=== PATIENT | female | born 1930 | race African-American/Black ===

== ENCOUNTER 2018-03-01 17:08 | Observation (INO) | payer OTHER ==
--- NOTE | 2018-03-01 18:25 | PDOC ---
Attending Attestation - Resident Resident Name: Kevin Medina - ED Attending Attestation I have performed the following: I have examined & evaluated the patient, The case was reviewed & discussed with the resident, I agree w/resident's findings & plan, Exceptions are as noted - HPI HPI: 03/01/18 19:03 The patient is an 88 year old female with a significant past medical history of breast ca, angina pectoris,CAD, CVA s/p L sided weakness, CHF, diabetes, HTN, HLD, depressive disorder, tremors, and dementia who presents to the emergency department for evaluation of right sided weakness at 4pm. The patient reports the right sided weakness has since resolved .The patient reports associated symptoms of generalized weakness and nausea. She states she has been in and out of the hospital for months for nausea without vomiting. As per transfer notes, the patient was unsteady on romberg testing and had a right sided pronator drift which prompted the MA staff to send her to the emergency department to rule out TIA. Pt is a poor historian and admits to having some "memory problems." The patient denies chest pain, shortness of breath, headache, and dizziness. Denies fevers, chills, vomiting, diarrhea, and constipation. Denies dysuria, frequency, urgency, and hematuria. Allergies: NKA Past surgical history: Mastectomy Social history: No reported cigarette, alcohol, or drug use. - Physicial Exam PE: 03/01/18 19:04 GENERAL: Awake, alert, oriented to name only, in no acute distress HEAD: No signs of trauma EYES: PERRLA, EOMI, sclera anicteric, conjunctiva clear ENT: Auricles normal inspection, hearing grossly normal, nares patent, oropharynx clear without exudates. Moist mucosa NECK: Normal ROM, supple, no lymphadenopathy, JVD, or masses LUNGS: Breath sounds equal, clear to auscultation bilaterally. No wheezes, and no crackles HEART: Regular rate and rhythm, normal S1 and S2, no murmurs, rubs or gallops ABDOMEN: Soft, nontender, normoactive bowel sounds. No guarding, no rebound. No masses EXTREMITIES: Normal range of motion, no edema. No clubbing or cyanosis. No cords , erythema, or tenderness BACK: No midline spinal tenderness in cervical/thoracic/lumbar region NEUROLOGICAL: +word finding difficulty, cranial nerves intact, negative pronator drift, 5/5 strength in all 4 extremities, normal sensation to light touch in all 4 extremities, normal cerebellar exam, slightly ataxic gait SKIN: Warm, Dry, normal turgor, no rashes or lesions noted. - Medical Decision Making 03/01/18 18:38 88yo F with MMP including CVA with residual L sided weakness presents with transient R sided weakness at 4pm, that has since resolved. BP slightly low, other vitals unremarkable. DDx including TIA vs CVA vs toxic-metabolic abnormality. -labs -cth -ua -neuro c/s -dispo 03/01/18 20:23 CTH negative for acute CVA. Pt admitted for stroke work up Case discussed in detail with admitting physician Dr. Phelps including history, physical exam and ancillary studies. Admitting physician has assumed care for the patient, will follow all pending diagnostics and will complete the evaluation and treatment.
--- NOTE | 2018-03-01 18:44 | PDOC ---
History of Present Illness - General Chief Complaint: CVA/TIA Stated Complaint: WEAKNESS Time Seen by Provider: 03/01/18 17:33 - History of Present Illness Initial Comments: 03/01/18 19:32 The patient is an 88 year old female with a history of HTN, HLD, DM, CVA with residual left sided deficits who presents from [facility] for evaluation of right sided weakness. Per the AK, the patient began experiencing new right sided weakness and mild pronator drift with associated positive rhomburg at 4pm today and was transferred to the ED for further evaluation. The patient reports no symptoms here in the ED and notes only generalized weakness. The patient otherwise denies fevers, chills, SOB, chest pain, vomiting, abdominal pain, or changes with urination or bowel movements. tPA Exclusion checklist 3-4.5h - Time Elapsed Date last known well: 03/01/18 Time last known well: 16:00 Elaspsed time: Day(s) and 21 Hour(s) and 1 Minutes - Thrombolytic Therapy Candidate Is patient eligible for thrombolytic therapy: No - Relative Exclusion Criteria 3-4.5 hr Rapid improvement: Yes Stroke severity too mild: Yes - Add'l Relative Exclusion 3-4.5 hr Age > 80: Yes Taking an oral anticoagulant regardless of INR: Yes - Ineligibility reason(s) Reasons No tPA given: See reason(s) noted above NIH Stroke Scale - Last Known Well Date/Time & Onset Date Last Known Well: 03/01/18 Time Last Known Well: 16:00 - Initial Evaluation Level of consciousness: Alert Ask patient the month and their age: Answers both correctly Ask patient to open & close eyes; make fist and let go: Obeys both correctly Best gaze (horizontal eye movement): Normal Visual field testing: No visual field loss Facial paresis (Show teeth/raise eyebrows/close eyes tight): Normal symmetrical movement Motor Function: Left Arm: Normal Motor Function: Right Arm: Normal (extends arm 90 (or 45) degrees for 10 seconds without drift Motor Function: Left Leg: Normal (extends leg 30 degrees for 5 seconds without drift) Motor Function: Right Leg: Normal (extends leg 30 degrees for 5 seconds without drift) Limb Ataxia: No ataxia Sensory(Use pinprick test arms,legs,trunk,face/side to side): Normal Best language (Describe picture, name items, read sentences): No Aphasia Dysarthria (read several words): Normal articulation Extinction and Inattention: No abnormality - Total Score NIH Stroke Scale Score: 0 Past History - Past Medical History Allergies/Adverse Reactions: Allergies Allergy/AdvReac Type Severity Reaction Status Date / Time No Known Allergies Allergy Verified 03/01/18 17:21 Home Medications: Ambulatory Orders Acetaminophen [Tylenol] 650 mg PO TID PRN 03/01/18 Apixaban [Eliquis] 2.5 mg PO BID 03/01/18 Aspirin 81 mg PO DAILY 03/01/18 Atorvastatin Calcium 80 mg PO HS 03/01/18 Budesonide [Pulmicort 0.5 mg Nebulizer -] 1 neb NEB BID 03/01/18 Carvedilol [Coreg -] 6.25 mg PO BID 03/01/18 Docusate Sodium [Colace] 100 mg PO BID 03/01/18 Duloxetine HCl [Cymbalta -] 30 mg PO DAILY 03/01/18 Lisinopril [Zestril] 10 mg PO DAILY 03/01/18 Metformin HCl [Glucophage] 500 mg PO BID 03/01/18 Mirtazapine [Remeron -] 15 mg PO HS 03/01/18 Nitroglycerin 0.4 mg SL PRN PRN 03/01/18 Polyethylene Glycol 3350 [Clearlax] 17 gm PO DAILY 03/01/18 Cancer: Yes (malignant neoplasmt breast) Cardiac Disorders: Yes (angina pectoris, Artherosclerotic coronary artery disease) CVA: Yes (left sided hemiplagia right middle cerebral artery) COPD: No Diabetes: Yes HTN: Yes Hypercholesterolemia: Yes Psychiatric Problems: Yes (depresive disorder) Other medical history: tremors,cognitive, muscle weakness, - Suicide/Smoking/Psychosocial Hx Smoking History: Unknown if ever smoked Have you smoked in the past 12 months: No Information on smoking cessation initiated: No Hx Alcohol Use: No Drug/Substance Use Hx: No Substance Use Type: None Review of Systems - Review of Systems Comments:: 03/01/18 19:34 Constitutional: No fevers, chills, fatigue, malaise HEENT: No Rhinorrhea, nasal congestion, visual changes Cardiovascular: No chest pain, syncope, palpitations, lightheadedness Respiratory: No Cough, SOB, Hemoptysis, Gastrointestinal: Nausea. No Abdominal pain, Vomiting, Constipation, Diarrhea, Melena Genitourinary: No Dysuria, Frequency, Urgency, Hesitancy, Hematuria, Flank pain Musculoskeletal: No Myalgia, arthralgia Skin: No rashes, itching, bruising, pallor Neurologic: Weakness. No Headache, Dizziness, Numbness, or Tingling Psychiatric: No Hallucinations. No SI or HI *Physical Exam - Vital Signs Last Vital Signs Temp Pulse Resp BP Pulse Ox 98.8 F 94 H 18 98/68 100 03/01/18 17:22 03/01/18 17:22 03/01/18 17:22 03/01/18 17:22 03/01/18 17:22 - Physical Exam Comments: 03/01/18 19:35 General Appearance: Nourished. No Apparent Distress HEENT: EOMI, AVELINA. No Pharyngeal Erythema, Tonsillar Exudate, Tonsillar Erythema Neck: No Cervical Lymphadenopathy Respiratory/Chest: Lungs Clear, Normal Breath Sounds. No Crackles, Rales, Rhonchi, Wheezing Cardiovascular: Regular Rhythm, Regular Rate. No Murmur, Gallops, Rubs Gastrointestinal/Abdominal: Normal Bowel Sounds, Soft. 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 Normal Finger to Nose and Heel to Jones. No pronator drift. ED Treatment Course - LABORATORY CBC & Chemistry Diagram: 03/02/18 06:00 03/02/18 06:00 - RADIOLOGY Radiology Studies Ordered: Category Date Time Status HEAD CT (STROKE) [CT] Stat CT Scan 03/01/18 17:46 Taken Medical Decision Making - Medical Decision Making 03/01/18 19:36 The patient is an 88 year old female with a history of HTN, HLD, DM, CVA with residual left sided deficits who presents from [facility] for evaluation of right sided weakness. Differential includes but is not limited to: TIA, CVA, Infectious, Metabolic derangement. The patient does not qualify for Tpa given her quick resolution of symptoms and that she is asymptomatic here in the ED. We obtain a stat head CT which demonstrated chronic bilateral infarcts as discussed with our radiologist. We discussed the case with Dr. Mckinnon who notes that the patient is on maximal medical therapy at this time and agrees that she should be admitted for MRI evaluation. We will send a cbc, cmp, troponin, lipid profile, ekg to evaluate further in the meantime. We will continue to monitor and reassess while here in the ED. 03/01/18 22:01 CBC, cmp, troponin are unremarkable. We discussed the case with the hospitalist team who accepted the patient for admission. We discussed the plan with the patient's family who voiced understanding and are agreeable with the plan. *DC/Admit/Observation/Transfer Diagnosis at time of Disposition: TIA (transient ischemic attack) Qualifiers: Transient cerebral ischemia type: unspecified Qualified Code(s): G45.9 - Transient cerebral ischemic attack, unspecified - Discharge Dispostion Condition at time of disposition: Stable Decision to Admit order: Yes - Referrals - Patient Instructions - Post Discharge Activity
[2018-03-01 18:56] LABS: BASO % 0.4 % (0-2.0); EOS % 1.2 % (0-4.5); HEMATOCRIT 31.5 % (32.4-45.2); HEMOGLOBIN 10.5 GM/dL (10.7-15.3); MCH 30.8 pg (25.7-33.7); MCHC 33.2 g/dl (32.0-36.0); MEAN CELL VOLUME 92.8 fl (80-96); MEAN PLT VOLUME 8.2 fl (7.5-11.1); MONO % 13.6 % (3.8-10.2); NEUT % 63.8 % (42.8-82.8); PLATELET COUNT 208 K/MM3 (134-434); RDW 14.3 % (11.6-15.6); WHITE BLOOD COUNT 5.9 K/mm3 (4.0-10.0)
[2018-03-01 19:16] LABS: INR 1.18 (0.82-1.09); PROTHROMBIN TIME (PATIENT) 13.3 SEC (9.7-13.0)
[2018-03-01 19:29] LABS: ALBUMIN 3.5 g/dl (3.4-5.0); ANION GAP 7 (8-16); BILIRUBIN,TOTAL 0.4 mg/dL (0.2-1.0); BLOOD UREA NITROGEN 45 mg/dL (7-18); CALCIUM 8.6 mg/dL (8.5-10.1); CHLORIDE 111 mmol/L (98-107); CHOLESTEROL 132 mg/dL (50-200); CO2 24 mmol/L (21-32); CREATININE 2.1 mg/dL (0.55-1.02); GLUCOSE,RANDOM 100 mg/dL (74-106); POTASSIUM 4.9 mmol/L (3.5-5.1); SGOT/AST 130 U/L (15-37); SGPT/ALT 101 U/L (12-78); SODIUM 142 mmol/L (136-145); TOT PROT 7.3 g/dl (6.4-8.2); TRIGLYCERIDES 94 mg/dL (35-160)
[2018-03-01 19:30] LABS: ALK PHOS 156 U/L (45-117); HDL CHOLESTEROL 62 mg/dL (40-60)
[2018-03-01 22:39] VITALS: BMI 22.6
--- NOTE | 2018-03-02 05:54 | HP ---
CHIEF COMPLAINT: R-sided weakness PCP: Dr. Pérez Lu HISTORY OF PRESENT ILLNESS: This is a 88 y/o woman PMHx HTN, HLD, CHF, Stents, s/p CABG, CVA (L- sided residual), Asthma, Depression. Who presents to the ED from [facility] for R- sided weakness. Patient reports having generalized weakness worse on her right side. Patient denies numbness or tingling, facial droop. Patient denies fever, chills, cough, SOB, dizziness, FAN, CP, AP, N/V/D. ER course was notable for: (1) CT Brain- neg ICH, mass effects or hydrocephalus, chronic bilateral MCA territory infarcts. mild to moderate microvascular ischemic changes (2) Chest Xray- no evidence if pulm congestion, effusion or infiltrates (3) Transaminitis- 3xNL Recent Travel: None PAST MEDICAL HISTORY: See HPI PAST SURGICAL HISTORY: See HPI Social History: Smoking: Unknown Alcohol: None Drugs: None Family History: Non- Contributory Allergies No Known Allergies Allergy (Verified 03/01/18 17:21) HOME MEDICATIONS: Home Medications Medication Instructions Recorded Acetaminophen [Tylenol] 650 mg PO TID PRN 03/01/18 Apixaban [Eliquis] 2.5 mg PO BID 03/01/18 Aspirin 81 mg PO DAILY 03/01/18 Atorvastatin Calcium 80 mg PO HS 03/01/18 Budesonide [Pulmicort 0.5 mg 1 neb NEB BID 03/01/18 Nebulizer -] Carvedilol [Coreg -] 6.25 mg PO BID 03/01/18 Docusate Sodium [Colace] 100 mg PO BID 03/01/18 Duloxetine HCl [Cymbalta -] 30 mg PO DAILY 03/01/18 Lisinopril [Zestril] 10 mg PO DAILY 03/01/18 Metformin HCl [Glucophage] 500 mg PO BID 03/01/18 Mirtazapine [Remeron -] 15 mg PO HS 03/01/18 Nitroglycerin 0.4 mg SL PRN PRN 03/01/18 Polyethylene Glycol 3350 [Clearlax] 17 gm PO DAILY 03/01/18 REVIEW OF SYSTEMS CONSTITUTIONAL: generalized weakness Absent: fever, chills, diaphoresis, malaise, loss of appetite, weight change HEENT: Absent: rhinorrhea, nasal congestion, throat pain, throat swelling, difficulty swallowing, mouth swelling, ear pain, eye pain, visual changes CARDIOVASCULAR: Absent: chest pain, syncope, palpitations, irregular heart rate, lightheadedness , peripheral edema RESPIRATORY: Absent: cough, shortness of breath, dyspnea with exertion, orthopnea, wheezing, stridor, hemoptysis GASTROINTESTINAL: Absent: abdominal pain, abdominal distension, nausea, vomiting, diarrhea, constipation, melena, hematochezia GENITOURINARY: Absent: dysuria, frequency, urgency, hesitancy, hematuria, flank pain, genital pain MUSCULOSKELETAL: Absent: myalgia, arthralgia, joint swelling, back pain, neck pain SKIN: Absent: rash, itching, pallor HEMATOLOGIC/IMMUNOLOGIC: Absent: easy bleeding, easy bruising, lymphadenopathy, frequent infections ENDOCRINE: Absent: unexplained weight gain, unexplained weight loss, heat intolerance, cold intolerance NEUROLOGIC: focal weakness Absent: headache, paresthesias, dizziness, unsteady gait, seizure, mental status changes, bladder or bowel incontinence PSYCHIATRIC: Absent: anxiety, depression, suicidal or homicidal ideation, hallucinations. PHYSICAL EXAMINATION Vital Signs - 24 hr 03/01/18 03/01/18 03/01/18 17:22 17:35 19:45 Temperature 98.8 F Pulse Rate 94 H 87 91 H Pulse Rate [ Apical] Respiratory 18 Rate Blood Pressure 98/68 Blood Pressure [Right Arm] O2 Sat by Pulse 100 97 98 Oximetry (%) 03/01/18 03/01/18 03/01/18 20:03 21:05 22:27 Temperature 97.9 F Pulse Rate 83 Pulse Rate [ 83 Apical] Respiratory 26 H 20 Rate Blood Pressure 143/59 Blood Pressure 101/73 [Right Arm] O2 Sat by Pulse 98 98 Oximetry (%) 03/01/18 03/02/18 22:46 01:05 Temperature 98.3 F Pulse Rate 73 Pulse Rate [ Apical] Respiratory 20 Rate Blood Pressure 115/68 Blood Pressure [Right Arm] O2 Sat by Pulse 95 Oximetry (%) GENERAL: Awake, alert, and fully oriented, in no acute distress. HEAD: Normal with no signs of trauma. EYES: Pupils equal, round and reactive to light, extraocular movements intact, sclera anicteric, conjunctiva clear. No lid lag. EARS, NOSE, THROAT: Ears normal, nares patent, oropharynx clear without exudates. Moist mucous membranes. NECK: Normal range of motion, supple without lymphadenopathy, JVD, or masses. LUNGS: Breath sounds equal, clear to auscultation bilaterally. No wheezes, and no crackles. No accessory muscle use. HEART: Regular rate and rhythm, normal S1 and S2 without murmur, rub or gallop. ABDOMEN: Soft, nontender, not distended, normoactive bowel sounds, no guarding, no rebound, no masses. No hepatomegaly or splenomegaly. MUSCULOSKELETAL: Normal range of motion at all joints. No bony deformities or tenderness. No CVA tenderness. UPPER EXTREMITIES: 2+ pulses, warm, well-perfused. No cyanosis. No clubbing. No peripheral edema. LOWER EXTREMITIES: 2+ pulses, warm, well-perfused. No calf tenderness. No peripheral edema. NEUROLOGICAL: Cranial nerves II-XII intact. Normal speech. Gait not observed. PSYCHIATRIC: Cooperative. Good eye contact. Appropriate mood and affect. SKIN: Warm, dry, normal turgor, no rashes or lesions noted, normal capillary refill. Laboratory Results - last 24 hr 03/01/18 03/01/18 03/01/18 18:05 18:05 18:05 WBC 5.9 RBC 3.40 L Hgb 10.5 L Hct 31.5 L MCV 92.8 MCH 30.8 MCHC 33.2 RDW 14.3 Plt Count 208 MPV 8.2 Neutrophils % 63.8 Lymphocytes % 21.0 Monocytes % 13.6 H Eosinophils % 1.2 Basophils % 0.4 Nucleated RBC % 0 PT with INR 13.30 H INR 1.18 H Sodium 142 Potassium 4.9 Chloride 111 H Carbon Dioxide 24 Anion Gap 7 L BUN 45 H Creatinine 2.1 H Creat Clearance w eGFR 22.28 Random Glucose 100 Calcium 8.6 Total Bilirubin 0.4 AST 130 H ALT 101 H Alkaline Phosphatase 156 H Creatine Kinase 123 Troponin I < 0.02 Total Protein 7.3 Albumin 3.5 Triglycerides 94 Cholesterol 132 Total LDL Cholesterol 64 HDL Cholesterol 62 H ASSESSMENT/PLAN: This is a 88 y/o PMH: CVA (L-sided deficits), CHF, HTN, Asthma, CKD, OA. Placed in Tele Observation for TIA. Plan FEN - D51/2NS@30cc/hr - Replete lytes prn - NPO DVT ppx - OOB - SCDs Code Status: Full Code Dispo: Tele Observation Problem List - Problem (1) TIA (transient ischemic attack) Assessment/Plan: - r/o CVA - Cardiac monitoring - NIHSS 0 - CT Brain- no ICH - Appreciate Neurology consult - MRI Brain- pending - Swallow eval - RD - HgbA1c - Neurochecks - Fall precautions - CBC, BMP in am - Continue home meds Code(s): G45.9 - TRANSIENT CEREBRAL ISCHEMIC ATTACK, UNSPECIFIED Qualifiers: Transient cerebral ischemia type: unspecified Qualified Code(s): G45.9 - Transient cerebral ischemic attack, unspecified (2) Transaminitis Assessment/Plan: - Likely secondary to high dose statin vs acetaminophen - Consider decreasing Lipitor (weigh risks vs dangers 2/2 recent CVA) - Monitor BMP Code(s): R74.0 - NONSPEC ELEV OF LEVELS OF TRANSAMNS & LACTIC ACID DEHYDRGNSE (3) CAD (coronary artery disease) Assessment/Plan: - Stable - s/p CABG - Continue home meds - EKG reviewed Code(s): I25.10 - ATHSCL HEART DISEASE OF [place] CORONARY ARTERY W/O ANG PCTRS (4) HTN (hypertension) Assessment/Plan: - stable - Monitor BP - Continue Lisinopril with caution 2/2 NAOMY (Crcl 14ml/min) - Monitor renal function Code(s): I10 - ESSENTIAL (PRIMARY) HYPERTENSION (5) CKD (chronic kidney disease) Assessment/Plan: - Cr 2.1, unlnown baseline - Consider Nephrology consult - Avoid Nephrotoxic drugs - Repeat BMP in am Code(s): N18.9 - CHRONIC KIDNEY DISEASE, UNSPECIFIED (6) CHF (congestive heart failure) Assessment/Plan: - Stable - Chest Xray- no infiltrate or effusion - BNP in am - Continue home meds - Monitor vitals Code(s): I50.9 - HEART FAILURE, UNSPECIFIED (7) Asthma Assessment/Plan: -Stable - Continue Pulmicort neb - Peakflow - Monitor Spo2, vitals Code(s): J45.909 - UNSPECIFIED ASTHMA, UNCOMPLICATED (8) Breast cancer, left Assessment/Plan: - s/p Mastectomy - FU with Oncology as needed Code(s): C50.912 - MALIGNANT NEOPLASM OF UNSPECIFIED SITE OF LEFT FEMALE BREAST Visit type - Emergency Visit Emergency Visit: Yes ED Registration Date: 03/01/18 Care time: The patient presented to the Emergency Department on the above date and was hospitalized for further evaluation of their emergent condition. - New Patient This patient is new to me today: Yes Date on this admission: 03/01/18 - Critical Care Critical Care patient: No Hospitalist Screening - Colonoscopy Questionnaire Colonoscopy Questionnaire: Colonoscopy Questionnaire - Patient: 50 - 75 years old and never had a screening colonoscopy: No History of colon or rectal polyps, or CA: No History of IBD, Crohn's disease or UC: No History of abdominal radiation therapy as a child: No - Relative: 1 with colon or rectal CA, or polyps at age 60 or younger: No Colon or rectal CA diagnosed at age 45 or younger: No Multiple relatives with colon or rectal CA: No - Outcome: Screening Result: Negative Screen
[2018-03-02 06:34] LABS: BASO % 0.7 % (0-2.0); EOS % 2.4 % (0-4.5); HEMATOCRIT 28.3 % (32.4-45.2); HEMOGLOBIN 9.4 GM/dL (10.7-15.3); LYMPH % 31.6 % (8-40); MCH 30.8 pg (25.7-33.7); MCHC 33.3 g/dl (32.0-36.0); MEAN CELL VOLUME 92.6 fl (80-96); MEAN PLT VOLUME 7.9 fl (7.5-11.1); MONO % 15.5 % (3.8-10.2); NEUT % 49.8 % (42.8-82.8); PLATELET COUNT 163 K/MM3 (134-434); RBC 3.06 M/mm3 (3.60-5.2); RDW 13.8 % (11.6-15.6); WHITE BLOOD COUNT 4.9 K/mm3 (4.0-10.0)
[2018-03-02 06:58] LABS: ANION GAP 7 (8-16); BLOOD UREA NITROGEN 42 mg/dL (7-18); CALCIUM 8.4 mg/dL (8.5-10.1); CHLORIDE 114 mmol/L (98-107); CO2 24 mmol/L (21-32); CREATININE 1.8 mg/dL (0.55-1.02); GLUCOSE,RANDOM 100 mg/dL (74-106); MAGNESIUM 1.5 mg/dL (1.8-2.4); PHOSPHOROUS 4.4 mg/dL (2.5-4.9); POTASSIUM 4.6 mmol/L (3.5-5.1); SODIUM 145 mmol/L (136-145)
[2018-03-02] MEDS: DULoxetine HCL 30 MG CAPSULE.DR (FP) PO SCH (09:28)
[2018-03-02] MEDS: APIXABAN 2.5 MG TABLET PO SCH ×2 (09:28→22:00)
[2018-03-02] MEDS: DOCUSATE SODIUM 100 MG CAPSULE (FP) PO SCH ×2 (09:28→22:00)
[2018-03-02] MEDS: ASPIRIN 81 MG CHEWABLE TABLETS PO SCH (09:28)
[2018-03-02] MEDS: CARVEDILOL 6.25 MG TABLET (FP) PO SCH ×2 (09:28→22:00)
[2018-03-02] MEDS: LISINOPRIL 10 MG TABLET (FP) PO SCH (09:29)
[2018-03-02] MEDS: DEXTROSE 5%-0.45% SALINE 1,000 ML IV SCH ×2 (09:29→22:22)
[2018-03-02] MEDS ORDERED: LISINOPRIL 10 MG TABLET (FP) PO SCH (10:00)
[2018-03-02] MEDS: BUDESONIDE 0.5 MG/2 ML INH SUSP VIAL NEB SCH ×2 (10:00→21:45)
[2018-03-02] MEDS: INSULIN SLIDING SCALE (NOVOLOG) 1 VIAL SQ SCH ×3 (12:01→22:00)
--- NOTE | 2018-03-02 13:07 | CON.NEURO ---
Consult - Past Medical History ...: No - Alcohol/Substance Use Hx Alcohol Use: No - Smoking History Smoking history: Unknown if ever smoked Have you smoked in the past 12 months: No Home Medications - Allergies Allergies/Adverse Reactions: Allergies Allergy/AdvReac Type Severity Reaction Status Date / Time No Known Allergies Allergy Verified 03/01/18 17:21 - Home Medications Home Medications: Ambulatory Orders Acetaminophen [Tylenol] 650 mg PO TID PRN 03/01/18 Apixaban [Eliquis] 2.5 mg PO BID 03/01/18 Aspirin 81 mg PO DAILY 03/01/18 Atorvastatin Calcium 80 mg PO HS 03/01/18 Budesonide [Pulmicort 0.5 mg Nebulizer -] 1 neb NEB BID 03/01/18 Carvedilol [Coreg -] 6.25 mg PO BID 03/01/18 Docusate Sodium [Colace] 100 mg PO BID 03/01/18 Duloxetine HCl [Cymbalta -] 30 mg PO DAILY 03/01/18 Lisinopril [Zestril] 10 mg PO DAILY 03/01/18 Metformin HCl [Glucophage] 500 mg PO BID 03/01/18 Mirtazapine [Remeron -] 15 mg PO HS 03/01/18 Nitroglycerin 0.4 mg SL PRN PRN 03/01/18 Polyethylene Glycol 3350 [Clearlax] 17 gm PO DAILY 03/01/18 Physical Exam-Neuro Vital Signs: Vital Signs Temperature 98.7 F 03/02/18 09:00 Pulse Rate 85 03/02/18 09:00 Respiratory Rate 20 03/02/18 09:00 Blood Pressure 114/59 03/02/18 09:00 O2 Sat by Pulse Oximetry (%) 95 03/02/18 09:00 Labs: CBC, BMP 03/02/18 06:00 03/02/18 06:00 INR, PTT INR 1.18 (0.82-1.09) H 03/01/18 18:05 Assessment/Plan cc Transient right sided weakness HPI 88 year old female history of htn, hld , CABG,CHF, S/P stent WITH MILD left sided residual weaknes. She also have history of depression. She lives in [place] and came with right sided weakness. Her symptoms resolved. She is feelign much better. She is on atorvastatin and eliquis. Her ct scan of brain was normal. PMH as above ROS,SH,FH reviewed in chart NKDA HOME MEDICATIONS: Home Medications Medication Instructions Recorded Acetaminophen [Tylenol] 650 mg PO TID PRN 03/01/18 Apixaban [Eliquis] 2.5 mg PO BID 03/01/18 Aspirin 81 mg PO DAILY 03/01/18 Atorvastatin Calcium 80 mg PO HS 03/01/18 Budesonide [Pulmicort 0.5 mg 1 neb NEB BID 03/01/18 Nebulizer -] Carvedilol [Coreg -] 6.25 mg PO BID 03/01/18 Docusate Sodium [Colace] 100 mg PO BID 03/01/18 Duloxetine HCl [Cymbalta -] 30 mg PO DAILY 03/01/18 Lisinopril [Zestril] 10 mg PO DAILY 03/01/18 Metformin HCl [Glucophage] 500 mg PO BID 03/01/18 Mirtazapine [Remeron -] 15 mg PO HS 03/01/18 Nitroglycerin 0.4 mg SL PRN PRN 03/01/18 Polyethylene Glycol 3350 [Clearlax] 17 gm PO DAILY 03/01/18 Neurological Examination Alert oriented x 2, speech is normal eomi, pupils reactive , no face asymmetry except 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 She is on Eliquis ( as per patient for abnromal heart rate) Plan- waiting for speech and swallow, no need for pt as symptoms resolved - mri ofbrain and carotid ultrasound - stroke education - continue aspirin and anticoagulation - continue statin - Patient can be discharged once work up has been negative Thanking you so much Dalton Galdamez MD
--- NOTE | 2018-03-02 13:49 | PN ---
Physical Exam: SUBJECTIVE: Patient seen and examined. Patient has no complaints. OBJECTIVE: Vital Signs Period Temp Pulse Resp BP Sys/Parish Pulse Ox Last 24 Hr 97.8 F-98.8 F 73-94 18-26 98-143/59-73 95-100 GENERAL: The patient is awake, alert, in no acute distress. LUNGS: Breath sounds equal, clear to auscultation bilaterally, no wheezes, no crackles, no accessory muscle use. HEART: Regular rate and rhythm, S1, S2 without murmur, rub or gallop. ABDOMEN: Soft, nontender, nondistended, normoactive bowel sounds, no guarding, no rebound, no hepatosplenomegaly, no masses. EXTREMITIES: 2+ pulses, warm, well-perfused, no edema. NEUROLOGICAL: Speech clear. No facial weakness. Strength 4+/5 in RUE/LLE/RLE and 4/5 in LUE Laboratory Results - last 24 hr 03/01/18 03/01/18 03/01/18 18:05 18:05 18:05 WBC 5.9 RBC 3.40 L Hgb 10.5 L Hct 31.5 L MCV 92.8 MCH 30.8 MCHC 33.2 RDW 14.3 Plt Count 208 MPV 8.2 Neutrophils % 63.8 Lymphocytes % 21.0 Monocytes % 13.6 H Eosinophils % 1.2 Basophils % 0.4 Nucleated RBC % 0 PT with INR 13.30 H INR 1.18 H Sodium 142 Potassium 4.9 Chloride 111 H Carbon Dioxide 24 Anion Gap 7 L BUN 45 H Creatinine 2.1 H Creat Clearance w eGFR 22.28 POC Glucometer Random Glucose 100 Calcium 8.6 Phosphorus Magnesium Total Bilirubin 0.4 AST 130 H ALT 101 H Alkaline Phosphatase 156 H Creatine Kinase 123 Troponin I < 0.02 Total Protein 7.3 Albumin 3.5 Triglycerides 94 Cholesterol 132 Total LDL Cholesterol 64 HDL Cholesterol 62 H 03/02/18 03/02/18 03/02/18 06:00 06:00 11:55 WBC 4.9 RBC 3.06 L Hgb 9.4 L D Hct 28.3 L MCV 92.6 MCH 30.8 MCHC 33.3 RDW 13.8 Plt Count 163 D MPV 7.9 Neutrophils % 49.8 D Lymphocytes % 31.6 D Monocytes % 15.5 H Eosinophils % 2.4 D Basophils % 0.7 Nucleated RBC % 0 PT with INR INR Sodium 145 Potassium 4.6 Chloride 114 H Carbon Dioxide 24 Anion Gap 7 L BUN 42 H Creatinine 1.8 H Creat Clearance w eGFR POC Glucometer 251 Random Glucose 100 Calcium 8.4 L Phosphorus 4.4 Magnesium 1.5 L Total Bilirubin AST ALT Alkaline Phosphatase Creatine Kinase Troponin I Total Protein Albumin Triglycerides Cholesterol Total LDL Cholesterol HDL Cholesterol Active Medications Generic Name Dose Route Start Last Admin Trade Name Freq PRN Reason Stop Dose Admin Apixaban 2.5 mg 03/02/18 10:00 03/02/18 09:28 Eliquis - PO 2.5 mg BID TABATHA Administration Aspirin 81 mg 03/02/18 10:00 03/02/18 09:28 Asa - PO 81 mg DAILY TABATHA Administration Atorvastatin Calcium 80 mg 03/02/18 22:00 Lipitor - PO [facility] Budesonide 1 amp 03/02/18 10:00 03/02/18 10:00 Pulmicort 0.5 Mg Nebulizer - NEB 1 amp BID TABATHA Administration Carvedilol 6.25 mg 03/02/18 10:00 03/02/18 09:28 Coreg - PO 6.25 mg BID [facility] Administration Docusate Sodium 100 mg 03/02/18 10:00 03/02/18 09:28 Colace - PO 100 mg BID TABATHA Administration Duloxetine HCl 30 mg 03/02/18 10:00 03/02/18 09:28 Cymbalta - PO 30 mg DAILY TABATHA Administration Dextrose/Sodium Chloride 1,000 mls @ 30 mls/hr 03/02/18 07:15 03/02/18 09:29 D5-1/2ns - IV 30 mls/hr ASDIR TABATHA Administration Insulin Aspart 1 vial 03/02/18 11:00 03/02/18 12:01 Novolog Vial Sliding Scale - SQ 6 units ACHS [facility] Administration Protocol Lisinopril 10 mg 03/02/18 10:00 03/02/18 09:29 Prinivil PO 10 mg DAILY [facility] Administration Mirtazapine 15 mg 03/02/18 22:00 Remeron - PO [facility] ASSESSMENT/PLAN: 1. Probable TIA - Symptoms resolved - Head CT showed no acute infarct; chronic bilaeral MCA infarcts; atrophy; mild to moderate microvascular white matter ischemic changes - MRI of brain - Carotid dopplers - Continue aspirin, Lipitor, Eliquis 2. History of CVA 3. HTN - Continue lisinopril, Coreg 4. Hyperlipidemia - Continue Lipitor 5. 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 Type 2 DM - Glucophage held - Continue Novolog sliding scale Visit type - Emergency Visit Emergency Visit: Yes ED Registration Date: 03/01/18 Care time: The patient presented to the Emergency Department on the above date and was hospitalized for further evaluation of their emergent condition. - New Patient This patient is new to me today: Yes Date on this admission: 03/02/18 - Critical Care Critical Care patient: No - Discharge Referral Referred to [facility] No
--- NOTE | 2018-03-02 17:30 | EKG ---
Test Reason : Blood Pressure : / mmHG Vent. Rate : 077 BPM Atrial Rate : 077 BPM P-R Int : 206 ms QRS Dur : 080 ms QT Int : 360 ms P-R-T Axes : 073 -29 099 degrees QTc Int : 407 ms NORMAL SINUS RHYTHM CANNOT RULE OUT ANTERIOR INFARCT , AGE UNDETERMINED ABNORMAL ECG NO PREVIOUS ECGS AVAILABLE Confirmed by SANTA NICK MD ([id number]) on 03/02/2018 5:30:37 PM Referred By: Confirmed By:SANTA NICK MD
[2018-03-02] MEDS: ATORVASTATIN CA 80 MG TABLET (FP) PO SCH (22:00)
[2018-03-02] MEDS: MIRTAZAPINE 15 MG TABLET (FP) PO SCH (22:00)
[2018-03-03] MEDS: INSULIN SLIDING SCALE (NOVOLOG) 1 VIAL SQ SCH ×4 (06:24→21:55)
[2018-03-03 08:12] LABS: HEMATOCRIT 29.6 % (32.4-45.2); MCH 31.5 pg (25.7-33.7); MEAN CELL VOLUME 92.6 fl (80-96); PLATELET COUNT 193 K/MM3 (134-434); RBC 3.19 M/mm3 (3.60-5.2); RDW 14.1 % (11.6-15.6); WHITE BLOOD COUNT 6.3 K/mm3 (4.0-10.0)
[2018-03-03 09:02] LABS: CHLORIDE 112 mmol/L (98-107); POTASSIUM 4.3 mmol/L (3.5-5.1); SODIUM 142 mmol/L (136-145)
[2018-03-03] MEDS: BUDESONIDE 0.5 MG/2 ML INH SUSP VIAL NEB SCH ×2 (09:13→21:20)
[2018-03-03 09:17] LABS: ANION GAP 9 (8-16); BLOOD UREA NITROGEN 29 mg/dL (7-18); CALCIUM 8.5 mg/dL (8.5-10.1); CO2 21 mmol/L (21-32); CREATININE 1.4 mg/dL (0.55-1.02); GLUCOSE,RANDOM 97 mg/dL (74-106)
[2018-03-03] MEDS ORDERED: MAGNESIUM OXIDE 400 MG TABLET (FP) PO ONE (09:30)
[2018-03-03] MEDS ORDERED: PT OWN MED DRAWER 7, Y5N ONE (09:42)
[2018-03-03] MEDS: DEXTROSE 5%-0.45% SALINE 1,000 ML IV SCH (09:49)
[2018-03-03] MEDS: APIXABAN 2.5 MG TABLET PO SCH ×2 (09:50→22:15)
[2018-03-03] MEDS: ASPIRIN 81 MG CHEWABLE TABLETS PO SCH (09:50)
[2018-03-03] MEDS: CARVEDILOL 6.25 MG TABLET (FP) PO SCH ×2 (09:50→22:15)
[2018-03-03] MEDS: LISINOPRIL 10 MG TABLET (FP) PO SCH (09:51)
[2018-03-03] MEDS: DULoxetine HCL 30 MG CAPSULE.DR (FP) PO SCH (09:51)
[2018-03-03] MEDS: DOCUSATE SODIUM 100 MG CAPSULE (FP) PO SCH ×2 (09:51→22:15)
--- NOTE | 2018-03-03 10:10 | PN ---
Progress Note (short form) - Note Progress Note: 88 year old female history of htn, hld , CABG,CHF, S/P stent WITH MILD left sided residual weaknes. She came with transient right sided weakness and it is resolved. She also have history of depression. She lives in [place] and came with right sided weakness. Her symptoms resolved. She is feelign much better. She is on atorvastatin and eliquis. Her ct scan of brain was normal. mri of brain is unremarkable. Neurological Examination Alert oriented x 2, speech is normal eomi, pupils reactive , no face asymmetry except mild left hand continuity tester weakness( residual left side) sensation is normal ct head unremarkable, carotid ultrasound is normal, mri of brain is unremarkable Assessment-88 year old female hsitory of stroke , came with transient right sided weakness, and symptoms are resolved, nih score is 0, able to swallow. She is on Eliquis , aspirin and statin. Plan- continue current level of care, once carotid ultrasound is normal, she is clear to be discharge from neuro point of view. - stroke education Thanking you so much Dalton Galdamez MD
--- NOTE | 2018-03-03 16:51 | PN ---
Physical Exam: SUBJECTIVE: Patient seen and examined. She has no complaints. OBJECTIVE: Vital Signs Period Temp Pulse Resp BP Sys/Parish Pulse Ox Last 24 Hr 97.6 F-98.4 F 75-90 18-20 100-143/54-77 96-96 GENERAL: The patient is awake, alert, in no acute distress. LUNGS: Breath sounds equal, clear to auscultation bilaterally, no wheezes, no crackles, no accessory muscle use. HEART: Regular rate and rhythm, S1, S2 without murmur, rub or gallop. ABDOMEN: Soft, nontender, nondistended, normoactive bowel sounds, no guarding, no rebound, no hepatosplenomegaly, no masses. EXTREMITIES: 2+ pulses, warm, well-perfused, no edema. NEUROLOGICAL: Speech clear. No facial weakness. Strength 4+/5 in RUE/LLE/RLE and 4/5 in LUE Laboratory Results - last 24 hr 03/02/18 03/02/18 03/03/18 17:10 21:22 06:24 WBC RBC Hgb Hct MCV MCH MCHC RDW Plt Count MPV Sodium Potassium Chloride Carbon Dioxide Anion Gap BUN Creatinine POC Glucometer 73 181 106 Random Glucose Calcium 03/03/18 03/03/18 03/03/18 07:28 07:28 11:26 WBC 6.3 RBC 3.19 L Hgb 10.0 L Hct 29.6 L MCV 92.6 MCH 31.5 MCHC 34.0 RDW 14.1 Plt Count 193 MPV 8.0 Sodium 142 Potassium 4.3 Chloride 112 H Carbon Dioxide 21 Anion Gap 9 BUN 29 H Creatinine 1.4 H POC Glucometer 157 Random Glucose 97 Calcium 8.5 Active Medications Generic Name Dose Route Start Last Admin Trade Name Freq PRN Reason Stop Dose Admin Apixaban 2.5 mg 03/02/18 10:00 03/03/18 09:50 Eliquis - PO 2.5 mg BID TABATHA Administration Aspirin 81 mg 03/02/18 10:03/03/18 09:50 Asa - PO 81 mg DAILY TABATHA Administration Atorvastatin Calcium 80 mg 03/02/18 22:00 03/02/18 22:00 Lipitor - PO 80 mg HS TABATHA Administration Budesonide 1 amp 03/02/18 10:00 03/03/18 09:13 Pulmicort 0.5 Mg Nebulizer - NEB 1 amp BID TABATHA Administration Carvedilol 6.25 mg 03/02/18 10:00 03/03/18 09:50 Coreg - PO 6.25 mg BID TABATHA Administration Docusate Sodium 100 mg 03/02/18 10:00 03/03/18 09:51 Colace - PO 100 mg BID TABATHA Administration Duloxetine HCl 30 mg 03/02/18 10:00 03/03/18 09:51 Cymbalta - PO 30 mg DAILY TABATHA Administration Dextrose/Sodium Chloride 1,000 mls @ 30 mls/hr 03/02/18 07:15 03/03/18 09:49 D5-1/2ns - IV 30 mls/hr ASDIR TABATHA Administration Insulin Aspart 1 vial 03/02/18 11:00 03/03/18 16:42 Novolog Vial Sliding Scale - SQ 4 units ACHS TABATHA Administration Protocol Lisinopril 10 mg 03/02/18 10:00 03/03/18 09:51 Prinivil PO 10 mg DAILY TABATHA Administration Mirtazapine 15 mg 03/02/18 22:00 03/02/18 22:00 Remeron - PO 15 mg HS TABATHA Administration ASSESSMENT/PLAN: 1. Probable TIA - Symptoms resolved - Head CT showed no acute infarct; chronic bilateral MCA infarcts; atrophy; mild to moderate microvascular white matter ischemic changes - MRI of brain shows encephalomalacia/old infarct in right MCA territory involving right posterior frontal and parietal lobe, encephalomalacia/old infarct in left parietal lobe, no acute infarct - Carotid dopplers show moderate to large plaques at right common carotid bifurcation and bulb with no hemodynamically significant stenosis, significant intimal thickening in mid and distal left common carotid, moderate calcified plaques at left common carotid bifurcation and bulb with no hemodynamically significant stenosis - Continue aspirin, Lipitor, Eliquis 2. History of CVA - Continue aspirin, Lipitor, Eliquis 3. HTN - Continue lisinopril, Coreg 4. Hyperlipidemia - Continue Lipitor 5. Acute kidney injury on stage 3 CKD - Improving 6. Type 2 DM - Glucophage held - Continue Novolog sliding scale 7. Disposition - Ok for discharge back to [place] Visit type - Emergency Visit Emergency Visit: Yes ED Registration Date: 03/01/18 Care time: The patient presented to the Emergency Department on the above date and was hospitalized for further evaluation of their emergent condition. - New Patient This patient is new to me today: No - Critical Care Critical Care patient: No - Discharge Referral Referred to [facility] No
[2018-03-03] MEDS: ATORVASTATIN CA 80 MG TABLET (FP) PO SCH (22:14)
[2018-03-03] MEDS: MIRTAZAPINE 15 MG TABLET (FP) PO SCH (22:15)
[2018-03-04] MEDS: INSULIN SLIDING SCALE (NOVOLOG) 1 VIAL SQ SCH (06:03)
[2018-03-04] MEDS: DEXTROSE 5%-0.45% SALINE 1,000 ML IV SCH ×2 (06:04→06:29)
[2018-03-04 06:52] VITALS: BP 102/48; PULSE 66; TEMP 97.9
[2018-03-04 07:12] LABS: CHLORIDE 112 mmol/L (98-107); POTASSIUM 4.7 mmol/L (3.5-5.1); SODIUM 141 mmol/L (136-145)
[2018-03-04 07:20] LABS: ALBUMIN 2.8 g/dl (3.4-5.0); ALK PHOS 133 U/L (45-117); ANION GAP 6 (8-16); BILIRUBIN,TOTAL 0.3 mg/dL (0.2-1.0); BLOOD UREA NITROGEN 26 mg/dL (7-18); CALCIUM 8.2 mg/dL (8.5-10.1); CO2 23 mmol/L (21-32); CREATININE 1.3 mg/dL (0.55-1.02); GLUCOSE,RANDOM 120 mg/dL (74-106); MAGNESIUM 1.7 mg/dL (1.8-2.4); SGOT/AST 53 U/L (15-37); SGPT/ALT 68 U/L (12-78)
--- NOTE | 2018-03-04 08:56 | DS ---
Physical Examination Vital Signs: Vital Signs Temperature 97.9 F 03/04/18 06:00 Pulse Rate 66 03/04/18 06:00 Respiratory Rate 20 03/04/18 08:40 Blood Pressure 102/48 03/04/18 06:00 O2 Sat by Pulse Oximetry (%) 97 03/04/18 08:40 Constitutional: Yes: No Distress Eyes: Yes: WNL HENT: Yes: WNL Neck: Yes: WNL Cardiovascular: Yes: WNL Respiratory: Yes: WNL Gastrointestinal: Yes: WNL Renal/: Yes: WNL Musculoskeletal: Yes: WNL Extremities: Yes: WNL Edema: No Integumentary: Yes: WNL Wound/Incision: Yes: Clean/Dry Neurological: Yes: Pre-Existing Deficit ...Motor Strength: LLE, RLE Psychiatric: Yes: Other Labs: CBC, BMP 03/03/18 07:28 03/04/18 06:00 Discharge Summary Reason For Visit: TRANSIENT CEREBRAL ISCHEMIA Current Active Problems Asthma (Acute) Breast cancer, left (Acute) CAD (coronary artery disease) (Acute) CHF (congestive heart failure) (Acute) CKD (chronic kidney disease) (Acute) HTN (hypertension) (Acute) TIA (transient ischemic attack) (Acute) Transaminitis (Acute) Procedures: Principal: MRI BRAIN Hospital Course: admitted for r/o cva, on asa/lipitor/lipid panel checked and normal, mri no acute changes to brain Condition: Stable - Instructions Diet, Activity, Other Instructions: pt as tolerated low fat low salt diet ada Disposition: INTERMEDIATE FACILITY - Home Medications Comprehensive Discharge Medication List: Ambulatory Orders Acetaminophen [Tylenol] 650 mg PO TID PRN 03/01/18 Apixaban [Eliquis] 2.5 mg PO BID 03/01/18 Aspirin 81 mg PO DAILY 03/01/18 Atorvastatin Calcium 80 mg PO HS 03/01/18 Budesonide [Pulmicort 0.5 mg Nebulizer -] 1 neb NEB BID 03/01/18 Carvedilol [Coreg -] 6.25 mg PO BID 03/01/18 Docusate Sodium [Colace] 100 mg PO BID 03/01/18 Duloxetine HCl [Cymbalta -] 30 mg PO DAILY 03/01/18 Lisinopril [Zestril] 10 mg PO DAILY 03/01/18 Metformin HCl [Glucophage] 500 mg PO BID 03/01/18 Mirtazapine [Remeron -] 15 mg PO HS 03/01/18 Nitroglycerin 0.4 mg SL PRN PRN 03/01/18 Polyethylene Glycol 3350 [Clearlax] 17 gm PO DAILY 03/01/18 Insulin Sliding Scale [Novolog Vial Sliding Scale -] 1 vial SQ ACHS units 03/04 Lisinopril [Prinivil] 10 mg PO DAILY tablet 03/04/18
[2018-03-04] MEDS: BUDESONIDE 0.5 MG/2 ML INH SUSP VIAL NEB SCH (09:09)
[2018-03-04] MEDS: LISINOPRIL 10 MG TABLET (FP) PO SCH (09:37)
[2018-03-04] MEDS: CARVEDILOL 6.25 MG TABLET (FP) PO SCH (09:37)
[2018-03-04] MEDS: APIXABAN 2.5 MG TABLET PO SCH (09:37)
[2018-03-04] MEDS: DULoxetine HCL 30 MG CAPSULE.DR (FP) PO SCH (09:37)
[2018-03-04] MEDS: DOCUSATE SODIUM 100 MG CAPSULE (FP) PO SCH (09:37)
[2018-03-04] MEDS: ASPIRIN 81 MG CHEWABLE TABLETS PO SCH (09:37)
== END 2018-03-04 12:17 ==
LOC: JER 17:08 → JERBED 20:23 → J4S 22:00
PROVIDERS: ADMIT Internal Medicine; ATTEND Family Medicine
PROC: 3E013VG Introduction of Insulin into Subcutaneous Tissue, Percutaneous Approach (ICD-10-PCS; principal; 2018-03-01)
DX: G45.9 Transient cerebral ischemic attack, unspecified (principal); I12.9 Hypertensive chronic kidney disease with stage 1 through stage 4 chronic kidney disease, or unspecified chronic kidney disease; I25.119 Atherosclerotic heart disease of native coronary artery with unspecified angina pectoris; I69.354 Hemiplegia and hemiparesis following cerebral infarction affecting left non-dominant side; I50.9 Heart failure, unspecified; E11.22 Type 2 diabetes mellitus with diabetic chronic kidney disease; E78.5 Hyperlipidemia, unspecified; F03.90 Unspecified dementia, unspecified severity, without behavioral disturbance, psychotic disturbance, mood disturbance, and anxiety; F32.9 Major depressive disorder, single episode, unspecified; J45.909 Unspecified asthma, uncomplicated; N18.3 Chronic kidney disease, stage 3 (moderate); N17.9 Acute kidney failure, unspecified; R25.1 Tremor, unspecified; Z85.3 Personal history of malignant neoplasm of breast; R74.0 Nonspecific elevation of levels of transaminase and lactic acid dehydrogenase [LDH]; Z79.82 Long term (current) use of aspirin; Z79.84 Long term (current) use of oral hypoglycemic drugs; Z95.5 Presence of coronary angioplasty implant and graft; Z95.1 Presence of aortocoronary bypass graft; Z79.01 Long term (current) use of anticoagulants
CPT/HCPCS: 36415; 70450-TC; 70551-TC; 71045-TC-FY; 80048; 80053; 82465; 82550; 82962; 83718; 83721; 83735; 84100; 84478; 84484; 85025; 85027; 85610; 93005; 93010; 93880-TC; 94640; 96372; 99285-25; G0378

== ENCOUNTER 2018-08-24 17:32 | Observation (INO) | payer OTHER ==
--- NOTE | 2018-08-24 17:57 | PDOC ---
History of Present Illness - General Chief Complaint: Revisit, Lab Variance Stated Complaint: HIGH POTASSIUM - History of Present Illness Initial Comments: Lucia Lovell is an 88yo woman with a PMH of CAD s/p stents x2 (), HTN, DM2 , CKD, OA, CHF, HLD, dementia, parkinson's, TIA/CVA, and asthma who presents from a SNF with hyperkalemia and worsening kidney function. Per her daughters, present at bedside, they were told that her potassium was very high on blood tests completed at the shelter, but no one was able to place an IV. Per paperwork, there were [address] an IV and Ms Lovell refused additional attempts. Ms Lovell denies any headache, fever/chills, loss of appetite, chest pain, palpitations, SOB, lightheadedness, dysuria or urinary frequency. She states that she drinks lots of water and has had a normal appetite. She does report vague, diffuse abdominal discomfort but says it has been present Past History - Past Medical History Allergies/Adverse Reactions: Allergies Allergy/AdvReac Type Severity Reaction Status Date / Time No Known Allergies Allergy Verified 03/01/18 17:21 Home Medications: Ambulatory Orders Acetaminophen [Tylenol] 650 mg PO TID PRN 03/01/18 Apixaban [Eliquis] 2.5 mg PO BID 03/01/18 Aspirin 81 mg PO DAILY 03/01/18 Atorvastatin Calcium 10 mg PO HS 03/01/18 Budesonide [Pulmicort 0.5 mg Nebulizer -] 1 neb NEB BID 03/01/18 Carvedilol [Coreg -] 6.25 mg PO BID 03/01/18 Docusate Sodium [Colace] 100 mg PO BID 03/01/18 Duloxetine HCl [Cymbalta -] 30 mg PO DAILY 03/01/18 Mirtazapine [Remeron -] 15 mg PO HS 03/01/18 Nitroglycerin 0.4 mg SL PRN PRN 03/01/18 Polyethylene Glycol 3350 [Clearlax] 17 gm PO DAILY 03/01/18 Lisinopril [Prinivil] 10 mg PO DAILY tablet 03/04/18 Carbidopa/Levodopa *Cr* 25/100 [Sinemet *Cr* 25/100 -] 1 combo PO TID 08/24/18 Donepezil HCl [Aricept -] 5 mg PO DAILY 08/24/18 Insulin Lispro [Humalog] 5 unit SQ BID 08/24/18 Linagliptin [Tradjenta] 5 mg PO DAILY 08/24/18 Sodium Polystyrene Sulfonate 30 gm PO DAILY 08/24/18 Anemia: No Asthma: Yes Cancer: Yes (malignant neoplasmt breast) Cardiac Disorders: Yes (angina pectoris, Artherosclerotic coronary artery disease) CVA: Yes (left sided hemiplagia right middle cerebral artery) COPD: No CHF: Yes Dementia: No Diabetes: Yes GI Disorders: No Disorders: No HTN: Yes Hypercholesterolemia: Yes Liver Disease: No Psychiatric Problems: Yes (depresive disorder) Seizures: No Thyroid Disease: No - Surgical History Abdominal Surgery: No Appendectomy: No Cardiac Surgery: No Cholecystectomy: No Lung Surgery: No Neurologic Surgery: No Orthopedic Surgery: No - Suicide/Smoking/Psychosocial Hx Smoking History: Unknown if ever smoked Have you smoked in the past 12 months: No Hx Alcohol Use: No Drug/Substance Use Hx: No Substance Use Type: None Review of Systems - Review of Systems Comments:: General: No fevers, no chills, no weight or appetite change, no malaise HEENT: No changes in vision, no changes in hearing, no congestion, no sore throat CV: No chest pain, no palpitations, no LE edema Pulm: No SOB, no cough, no wheezing GI: No nausea or vomiting, no change in bowel habits, no melena. +diffuse abdominal discomfort : No frequency, no urgency, no dysuria Musc: No back pain, no joint swelling, no recent injury Skin: No rash, no lesions, no erythema Endo: No excessive thirst, no heat/cold intolerance Heme: No unusual bruising or bleeding, no swollen glands Neuro: No syncope, no numbness/tingling, no focal weakness Vasc: No claudication Psych: No recent change in mood, no SI or HI *Physical Exam - Physical Exam Comments: General: Comfortable, no acute distress HEENT: PERRL, EOMI, MMM, voice normal, normal neck ROM Cards: RRR Pulm: Comfortable on room air Abd: Soft, nondistended, minimally TTP across abdomen : No CVA tenderness Ext: Atraumatic. No LE edema. ROM intact. Strength equal bilaterally Vasc: Extremities WWP. Palpable radial pulses bilaterally Skin: Normal color, no rashes or lesions Neuro: A&Ox3, CN grossly intact, normal speech, motor/sensory grossly intact and symmetric Psych: Mood appropriate to situation ED Treatment Course - LABORATORY CBC & Chemistry Diagram: 08/24/18 18:35 08/24/18 18:35 Medical Decision Making - Medical Decision Making Collin Lovell is an 88yo woman with a PMH of CAD, HTN, DM2, CKD, OA, CHF, HLD, dementia, Parkinson's, TIA/CVA, and asthma who presents from a SNF with report of hyperkalemia to 6.5 on recent labs as well as worsening kidney function to Cr 2.0. - EKG completed. No peaked t-waves or other changes c/w hyperkalemia - CBC, CMP, mag, phos, CXR, UA, Urine culture ordered. 08/24/18 19:26 - Chemistry hemolized. Reordered - CBC reviewed, no abnormalities - UA sent. 3+ leuk esterase suggestive of possible UTI. Cell counts pending Dispo will depend on potassium level on labs today. Ms Lovell was signed out to Dr Auguste for the remainder of her ED care. Patient discussed with Dr Marks. Megan Page PGY1 *DC/Admit/Observation/Transfer Diagnosis at time of Disposition: Abnormal laboratory test result - Referrals - Patient Instructions - Post Discharge Activity Forms/Work/School Notes: Parent(s) Back to Work Note
--- NOTE | 2018-08-24 18:21 | PDOC ---
Attending Attestation - HPI HPI: 08/24/18 19:23 The patient is a 88 year old female from nursing facility and presenting with her daughter, with a significant past medical history of CAD s/p stents x2 (1979), HTN, DM2, CKD, OA, CHF, HLD, dementia, parkinson's, TIA/CVA, and asthma, who presents to the ED complaining of hyperkalemia and worsening kidney function. Her daughter states that the patient's potassium at the half-way was high and they were unable place an IV, prompting the ED visit. The patient does report abdominal discomfort, mild in severity. The patient denies chest pain, shortness of breath, headache and dizziness. Denies fever, chills, nausea, vomiting, diarrhea or constipation. Denies dysuria , frequency, urgency and hematuria. Allergies: none Past surgical history: cardiac stents (x2) Social History: No alcohol, tobacco or drug use reported - Physicial Exam PE: 08/24/18 19:23 General: Comfortable, no acute distress HEENT: PERRL, EOMI, MMM, voice normal, normal neck ROM Cards: RRR Pulm: Comfortable on room air Abd: Soft, nondistended, minimally TTP across abdomen : No CVA tenderness Ext: Atraumatic. No LE edema. ROM intact. Strength equal bilaterally Vasc: Extremities WWP. Palpable radial pulses bilaterally Skin: Normal color, no rashes or lesions Neuro: A&Ox3, CN grossly intact, normal speech, motor/sensory grossly intact and symmetric Psych: Mood appropriate to situation <Matthew Allen - Last Filed: 08/24/18 19:23> - Resident Resident Name: Megan Page - ED Attending Attestation I have performed the following: I have examined & evaluated the patient, The case was reviewed & discussed with the resident, I agree w/resident's findings & plan, Exceptions are as noted - Medical Decision Making 08/24/18 20:15 88 yo F, multiple medical problems presenting to the ER due to finding that potassium was elevated Labs drawn today Pt sent to the ER for confirmatory testing EKG - NSR rate of 71 bpm, Left axis deviation, t wave inversion I, aVL, no st elevation or depression, T wave otherwise upright EKG similar to prior Laboratory Tests 08/24/18 08/24/18 18:35 18:57 WBC 7.5 Hgb 11.4 Hct 34.4 D Plt Count 195 Urine WBC (Auto) 511 Urine RBC (Auto) 10 Ur Epithelial Cells Rare 08/24/18 20:17 CMP has hemolyzed twice 08/24/18 22:30 Laboratory Tests 08/24/18 20:17 Sodium 143 Potassium 5.6 H Chloride 112 H Carbon Dioxide 23 BUN 52 H Creatinine 1.9 H Random Glucose 138 H Creatine Kinase 111 Troponin I < 0.02 UTI - Ceftriaxone ordered Per pt family, they are now saying that this patient has had intermittent abdominal pain Pt confirms this. Will do: CT abd and pelvis po contrast only, no iv contrast Hyperkalemia/JOHN - will do IVF and Calcium gluconate <Saumya Marks - Last Filed: 08/24/18 22:49>
[2018-08-24 18:48] LABS: HEMATOCRIT 34.4 % (32.4-45.2); HEMOGLOBIN 11.4 GM/dL (10.7-15.3); MCH 31.3 pg (25.7-33.7); MCHC 33.2 g/dl (32.0-36.0); MEAN CELL VOLUME 94.2 fl (80-96); PLATELET COUNT 195 K/MM3 (134-434); RBC 3.66 M/mm3 (3.60-5.2); WHITE BLOOD COUNT 7.5 K/mm3 (4.0-10.0)
[2018-08-24 19:08] LABS: URINE APPEARANCE CLOUDY; URINE BILIRUBIN NEGATIVE (<2.0 mg/dL); URINE COLOR LTYELLOW; URINE GLUCOSE (UA) NEGATIVE (NEGATIVE); URINE KETONE NEGATIVE (NEGATIVE); URINE LEUK ESTERASE 3+ (NEGATIVE); URINE NITRITE NEGATIVE (NEGATIVE); URINE PROTEIN NEGATIVE (NEGATIVE); URINE UROBILINOGEN NEGATIVE mg/dL (0.2-1.0)
[2018-08-24 19:24] LABS: EPI CELLS RARE /HPF (FEW); URINE HYALINE CAST 2 /lpf; URINE MUCUS RARE
[2018-08-24 21:01] LABS: ALBUMIN 3.2 g/dl (3.4-5.0); ALK PHOS 107 U/L (45-117); ANION GAP 8 MMOL/L (8-16); BILIRUBIN,TOTAL 0.2 mg/dL (0.2-1); BLOOD UREA NITROGEN 52 mg/dL (7-18); CALCIUM 8.1 mg/dL (8.5-10.1); CHLORIDE 112 mmol/L (98-107); CO2 23 mmol/L (21-32); CREATININE 1.9 mg/dL (0.55-1.3); GLUCOSE,RANDOM 138 mg/dL (74-106); MAGNESIUM 2.1 mg/dL (1.8-2.4); PHOSPHOROUS 4.3 mg/dL (2.5-4.9); POTASSIUM 5.6 mmol/L (3.5-5.1); SGOT/AST 31 U/L (15-37); SGPT/ALT 24 U/L (13-61); SODIUM 143 mmol/L (136-145); TOT PROT 6.8 g/dl (6.4-8.2)
[2018-08-24] MEDS ORDERED: CEFTRIAXONE 1,000 MG in DEXTROSE 5%-WATER - 50 ML IVPB ONE (21:14)
[2018-08-24] MEDS ORDERED: CEFTRIAXONE 1 GM/50 ML BAG ONE (21:21)
--- NOTE | 2018-08-24 21:50 | HP ---
CHIEF COMPLAINT: PCP: HISTORY OF PRESENT ILLNESS: ER course was notable for: (1) (2) (3) Recent Travel: PAST MEDICAL HISTORY: PAST SURGICAL HISTORY: Social History: Smoking: Alcohol: Drugs: Family History: Allergies No Known Allergies Allergy (Verified 03/01/18 17:21) HOME MEDICATIONS: Home Medications Medication Instructions Recorded Acetaminophen [Tylenol] 650 mg PO TID PRN 03/01/18 Apixaban [Eliquis] 2.5 mg PO BID 03/01/18 Aspirin 81 mg PO DAILY 03/01/18 Atorvastatin Calcium 10 mg PO HS 03/01/18 Budesonide [Pulmicort 0.5 mg 1 neb NEB BID 03/01/18 Nebulizer -] Carvedilol [Coreg -] 6.25 mg PO BID 03/01/18 Docusate Sodium [Colace] 100 mg PO BID 03/01/18 Duloxetine HCl [Cymbalta -] 30 mg PO DAILY 03/01/18 Mirtazapine [Remeron -] 15 mg PO HS 03/01/18 Nitroglycerin 0.4 mg SL PRN PRN 03/01/18 Polyethylene Glycol 3350 [Clearlax] 17 gm PO DAILY 03/01/18 Lisinopril [Prinivil] 10 mg PO DAILY tablet 03/04/18 Carbidopa/Levodopa *Cr* 25/100 1 combo PO TID 08/24/18 [Sinemet *Cr* 25/100 -] Donepezil HCl [Aricept -] 5 mg PO DAILY 08/24/18 Insulin Lispro [Humalog] 5 unit SQ BID 08/24/18 Linagliptin [Tradjenta] 5 mg PO DAILY 08/24/18 Sodium Polystyrene Sulfonate 30 gm PO DAILY 08/24/18 REVIEW OF SYSTEMS CONSTITUTIONAL: Absent: fever, chills, diaphoresis, generalized weakness, malaise, loss of appetite, weight change HEENT: Absent: rhinorrhea, nasal congestion, throat pain, throat swelling, difficulty swallowing, mouth swelling, ear pain, eye pain, visual changes CARDIOVASCULAR: Absent: chest pain, syncope, palpitations, irregular heart rate, lightheadedness , peripheral edema RESPIRATORY: Absent: cough, shortness of breath, dyspnea with exertion, orthopnea, wheezing, stridor, hemoptysis GASTROINTESTINAL: Absent: abdominal pain, abdominal distension, nausea, vomiting, diarrhea, constipation, melena, hematochezia GENITOURINARY: Absent: dysuria, frequency, urgency, hesitancy, hematuria, flank pain, genital pain MUSCULOSKELETAL: Absent: myalgia, arthralgia, joint swelling, back pain, neck pain SKIN: Absent: rash, itching, pallor HEMATOLOGIC/IMMUNOLOGIC: Absent: easy bleeding, easy bruising, lymphadenopathy, frequent infections ENDOCRINE: Absent: unexplained weight gain, unexplained weight loss, heat intolerance, cold intolerance NEUROLOGIC: Absent: headache, focal weakness or paresthesias, dizziness, unsteady gait, seizure, mental status changes, bladder or bowel incontinence PSYCHIATRIC: Absent: anxiety, depression, suicidal or homicidal ideation, hallucinations. PHYSICAL EXAMINATION Vital Signs - 24 hr 08/24/18 17:53 Temperature 97.5 F L Pulse Rate 90 Respiratory 18 Rate Blood Pressure 154/71 O2 Sat by Pulse 100 Oximetry (%) GENERAL: Awake, alert, and fully oriented, in no acute distress. HEAD: Normal with no signs of trauma. EYES: Pupils equal, round and reactive to light, extraocular movements intact, sclera anicteric, conjunctiva clear. No lid lag. EARS, NOSE, THROAT: Ears normal, nares patent, oropharynx clear without exudates. Moist mucous membranes. NECK: Normal range of motion, supple without lymphadenopathy, JVD, or masses. LUNGS: Breath sounds equal, clear to auscultation bilaterally. No wheezes, and no crackles. No accessory muscle use. HEART: Regular rate and rhythm, normal S1 and S2 without murmur, rub or gallop. ABDOMEN: Soft, nontender, not distended, normoactive bowel sounds, no guarding, no rebound, no masses. No hepatomegaly or splenomegaly. MUSCULOSKELETAL: Normal range of motion at all joints. No bony deformities or tenderness. No CVA tenderness. UPPER EXTREMITIES: 2+ pulses, warm, well-perfused. No cyanosis. No clubbing. No peripheral edema. LOWER EXTREMITIES: 2+ pulses, warm, well-perfused. No calf tenderness. No peripheral edema. NEUROLOGICAL: Cranial nerves II-XII intact. Normal speech. Normal gait. PSYCHIATRIC: Cooperative. Good eye contact. Appropriate mood and affect. SKIN: Warm, dry, normal turgor, no rashes or lesions noted, normal capillary refill. Laboratory Results - last 24 hr 08/24/18 08/24/18 08/24/18 18:35 18:35 18:57 WBC 7.5 RBC 3.66 Hgb 11.4 Hct 34.4 D MCV 94.2 MCH 31.3 MCHC 33.2 RDW 13.0 Plt Count 195 MPV 8.0 Sodium Cancelled Potassium Cancelled Chloride Cancelled Carbon Dioxide Cancelled Anion Gap Cancelled BUN Cancelled Creatinine Cancelled Creat Clearance w eGFR Cancelled Random Glucose Cancelled Calcium Cancelled Phosphorus Cancelled Magnesium Cancelled Total Bilirubin Cancelled AST Cancelled ALT Cancelled Alkaline Phosphatase Cancelled Creatine Kinase Troponin I Total Protein Cancelled Albumin Cancelled Urine Color Ltyellow Urine Appearance Cloudy Urine pH 5.0 Ur Specific [place] 1.013 Urine Protein Negative Urine Glucose (UA) Negative Urine Ketones Negative Urine Blood Negative Urine Nitrite Negative Urine Bilirubin Negative Urine Urobilinogen Negative Ur Leukocyte Esterase 3+ H Urine WBC (Auto) 511 Urine RBC (Auto) 10 Ur Epithelial Cells Rare Hyaline Casts 2 Urine Mucus Rare 08/24/18 08/24/18 19:00 20:17 WBC RBC Hgb Hct MCV MCH MCHC RDW Plt Count MPV Sodium Cancelled 143 Potassium Cancelled 5.6 H Chloride Cancelled 112 H Carbon Dioxide Cancelled 23 Anion Gap Cancelled 8 BUN Cancelled 52 H Creatinine Cancelled 1.9 H Creat Clearance w eGFR Cancelled 25.01 Random Glucose Cancelled 138 H Calcium Cancelled 8.1 L Phosphorus 4.3 Magnesium 2.1 Total Bilirubin Cancelled 0.2 AST Cancelled 31 ALT Cancelled 24 Alkaline Phosphatase Cancelled 107 Creatine Kinase Cancelled 111 Troponin I Cancelled < 0.02 Total Protein Cancelled 6.8 Albumin Cancelled 3.2 L Urine Color Urine Appearance Urine pH Ur Specific [place] Urine Protein Urine Glucose (UA) Urine Ketones Urine Blood Urine Nitrite Urine Bilirubin Urine Urobilinogen Ur Leukocyte Esterase Urine WBC (Auto) Urine RBC (Auto) Ur Epithelial Cells Hyaline Casts Urine Mucus CBC, BMP 08/24/18 18:35 08/24/18 20:17 ASSESSMENT/PLAN:
[2018-08-24] MEDS ORDERED: CALCIUM GLUCONATE 10% - 1,000 MG/10 ML VIAL IVPB ONE (22:46)
[2018-08-24] MEDS: SODIUM CHLORIDE 1,000 ML IV SCH (23:30)
[2018-08-24] MEDS ORDERED: CALCIUM GLUCONATE 10% - 1,000 MG/10 ML VIAL ONE (23:37)
[2018-08-24] MEDS ORDERED: SODIUM POLYSTYRENE SULFONATE 15 GM/60 ML BOTTLE PO ONE (23:40)
[2018-08-25] MEDS ORDERED: SODIUM POLYSTYRENE SULFONATE 15 GM/60 ML BOTTLE ONE (00:06)
--- NOTE | 2018-08-25 00:34 | HP ---
CHIEF COMPLAINT: abdominal pain PCP: Hamida History obtained mainly from EMR as patient has baseline dementia HISTORY OF PRESENT ILLNESS: 88 year old female from nursing facility with a significant past medical history of CAD s/p stents x2 (), HTN, DM2, CKD, OA, CHF, HLD, dementia, parkinson's, TIA/CVA, and asthma sent to ER from senior care for hyperkalemia and and NAOMY on blood tests performed at senior care. Her daughter stated that the patient's potassium at the senior care was high and they were unable place an IV, prompting visit to hospital. Pt also c/o intermittent abdominal pain which improves with BM. She reports constipation. ER course was notable for: (1) IV fluid (2) calcium gluconate (3) Recent Travel: non e PAST MEDICAL HISTORY: CAD s/p stents x2 (), HTN, DM2, CKD, OA, CHF, HLD, dementia, parkinson's, TIA/CVA, and asthma PAST SURGICAL HISTORY: unknown Social History: Smoking: no Alcohol: no Drugs: no Family History: patient unable to provide info Allergies No Known Allergies Allergy (Verified 03/01/18 17:21) HOME MEDICATIONS: Home Medications Medication Instructions Recorded Acetaminophen [Tylenol] 650 mg PO TID PRN 03/01/18 Apixaban [Eliquis] 2.5 mg PO BID 03/01/18 Aspirin 81 mg PO DAILY 03/01/18 Atorvastatin Calcium 10 mg PO HS 03/01/18 Budesonide [Pulmicort 0.5 mg 1 neb NEB BID 03/01/18 Nebulizer -] Carvedilol [Coreg -] 6.25 mg PO BID 03/01/18 Docusate Sodium [Colace] 100 mg PO BID 03/01/18 Duloxetine HCl [Cymbalta -] 30 mg PO DAILY 03/01/18 Mirtazapine [Remeron -] 15 mg PO HS 03/01/18 Nitroglycerin 0.4 mg SL PRN PRN 03/01/18 Polyethylene Glycol 3350 [Clearlax] 17 gm PO DAILY 03/01/18 Lisinopril [Prinivil] 10 mg PO DAILY tablet 03/04/18 Carbidopa/Levodopa *Cr* 25/ 1 combo PO TID 08/24/18 [Sinemet *Cr* 25/100 -] Donepezil HCl [Aricept -] 5 mg PO DAILY 08/24/18 Insulin Lispro [Humalog] 5 unit SQ BID 08/24/18 Linagliptin [Tradjenta] 5 mg PO DAILY 08/24/18 Sodium Polystyrene Sulfonate 30 gm PO DAILY 08/24/18 REVIEW OF SYSTEMS CONSTITUTIONAL: Absent: fever, chills, diaphoresis, generalized weakness, malaise, loss of appetite, weight change HEENT: Absent: rhinorrhea, nasal congestion, throat pain, throat swelling, difficulty swallowing, mouth swelling, ear pain, eye pain, visual changes CARDIOVASCULAR: Absent: chest pain, syncope, palpitations, irregular heart rate, lightheadedness , peripheral edema RESPIRATORY: Absent: cough, shortness of breath, dyspnea with exertion, orthopnea, wheezing, stridor, hemoptysis GASTROINTESTINAL: Absent: abdominal distension, nausea, vomiting, diarrhea, melena, hematochezia Present- abdominal pain, constipation, GENITOURINARY: Absent: dysuria, frequency, urgency, hesitancy, hematuria, flank pain, genital pain MUSCULOSKELETAL: Absent: myalgia, arthralgia, joint swelling, back pain, neck pain SKIN: Absent: rash, itching, pallor HEMATOLOGIC/IMMUNOLOGIC: Absent: easy bleeding, easy bruising, lymphadenopathy, frequent infections ENDOCRINE: Absent: unexplained weight gain, unexplained weight loss, heat intolerance, cold intolerance NEUROLOGIC: Absent: headache, focal weakness or paresthesias, dizziness, unsteady gait, seizure, mental status changes, bladder or bowel incontinence PSYCHIATRIC: Absent: anxiety, depression, suicidal or homicidal ideation, hallucinations. PHYSICAL EXAMINATION Vital Signs - 24 hr 08/24/18 17:53 Temperature 97.5 F L Pulse Rate 90 Respiratory 18 Rate Blood Pressure 154/71 O2 Sat by Pulse 100 Oximetry (%) GENERAL: Awake, alert, and fully oriented, in no acute distress. HEAD: Normal with no signs of trauma. EYES: Pupils equal, round and reactive to light, extraocular movements intact, sclera anicteric, conjunctiva clear. No lid lag. EARS, NOSE, THROAT: Ears normal, nares patent, oropharynx clear without exudates. Moist mucous membranes. NECK: Normal range of motion, supple without lymphadenopathy, JVD, or masses. LUNGS: Breath sounds equal, clear to auscultation bilaterally. No wheezes, and no crackles. No accessory muscle use. HEART: Regular rate and rhythm, normal S1 and S2 without murmur, rub or gallop. ABDOMEN: Soft, nontender, not distended, normoactive bowel sounds, no guarding, no rebound, no masses. No hepatomegaly or splenomegaly. MUSCULOSKELETAL: Normal range of motion at all joints. No bony deformities or tenderness. No CVA tenderness. UPPER EXTREMITIES: 2+ pulses, warm, well-perfused. No cyanosis. No clubbing. No peripheral edema. LOWER EXTREMITIES: 2+ pulses, warm, well-perfused. No calf tenderness. No peripheral edema. PSYCHIATRIC: Cooperative. Good eye contact. Appropriate mood and affect. SKIN: Warm, dry skin, no rashes Laboratory Results - last 24 hr 08/24/18 08/24/18 08/24/18 18:35 18:35 18:57 WBC 7.5 RBC 3.66 Hgb 11.4 Hct 34.4 D MCV 94.2 MCH 31.3 MCHC 33.2 RDW 13.0 Plt Count 195 MPV 8.0 Sodium Cancelled Potassium Cancelled Chloride Cancelled Carbon Dioxide Cancelled Anion Gap Cancelled BUN Cancelled Creatinine Cancelled Creat Clearance w eGFR Cancelled Random Glucose Cancelled Calcium Cancelled Phosphorus Cancelled Magnesium Cancelled Total Bilirubin Cancelled AST Cancelled ALT Cancelled Alkaline Phosphatase Cancelled Creatine Kinase Troponin I Total Protein Cancelled Albumin Cancelled Urine Color Ltyellow Urine Appearance Cloudy Urine pH 5.0 Ur Specific [place] 1.013 Urine Protein Negative Urine Glucose (UA) Negative Urine Ketones Negative Urine Blood Negative Urine Nitrite Negative Urine Bilirubin Negative Urine Urobilinogen Negative Ur Leukocyte Esterase 3+ H Urine WBC (Auto) 511 Urine RBC (Auto) 10 Ur Epithelial Cells Rare Hyaline Casts 2 Urine Mucus Rare 08/24/18 08/24/18 19:00 20:17 WBC RBC Hgb Hct MCV MCH MCHC RDW Plt Count MPV Sodium Cancelled 143 Potassium Cancelled 5.6 H Chloride Cancelled 112 H Carbon Dioxide Cancelled 23 Anion Gap Cancelled 8 BUN Cancelled 52 H Creatinine Cancelled 1.9 H Creat Clearance w eGFR Cancelled 25.01 Random Glucose Cancelled 138 H Calcium Cancelled 8.1 L Phosphorus 4.3 Magnesium 2.1 Total Bilirubin Cancelled 0.2 AST Cancelled 31 ALT Cancelled 24 Alkaline Phosphatase Cancelled 107 Creatine Kinase Cancelled 111 Troponin I Cancelled < 0.02 Total Protein Cancelled 6.8 Albumin Cancelled 3.2 L Urine Color Urine Appearance Urine pH Ur Specific [place] Urine Protein Urine Glucose (UA) Urine Ketones Urine Blood Urine Nitrite Urine Bilirubin Urine Urobilinogen Ur Leukocyte Esterase Urine WBC (Auto) Urine RBC (Auto) Ur Epithelial Cells Hyaline Casts Urine Mucus ASSESSMENT/PLAN: #NAOMY on CKD -IV fluid hydration -avoid nephrotoxins #Hyperkalemia- no EKG changes -kayexalate -avoid ACEi for now -repeat potassium in am #Abdominal pain - likely from constipation, lfts wnl -CT of ab/pelvis with PO contrast ordered -lipase, lactate ordered -fleets enema ordered #CAD s/p stents x2 ()- asymptomatic -c/w ASA, lipitor -ngl prn #HTN- controlled, hold lisinopril temporarily due to hyperkalemia #DM2 -lispro sliding scale -send a1c #CHF- controlled -c/w carvedilol #HLD -c/w statin #dementia -c/w donepizol #parkinson's -c/w levadopa/carbidopa #TIA/CVA-controlled #asthma- controlled DVT ppx - patient is on ELiquis as per med list- uncertain for what reason. Will continue and confirm reason in am. Visit type - Emergency Visit Emergency Visit: Yes ED Registration Date: 08/25/18 Care time: The patient presented to the Emergency Department on the above date and was hospitalized for further evaluation of their emergent condition. - New Patient This patient is new to me today: Yes Date on this admission: 08/25/18 - Critical Care Critical Care patient: No
[2018-08-25] MEDS ORDERED: DULoxetine HCL 30 MG CAPSULE.DR (FP) PO ONE ×2 (00:48→01:55)
[2018-08-25] MEDS ORDERED: DOCUSATE SODIUM 100 MG CAPSULE (FP) PO PRN (00:49)
[2018-08-25] MEDS ORDERED: ATORVASTATIN CA 10 MG TABLET (FP) PO ONE (00:50)
[2018-08-25] MEDS: SODIUM CHLORIDE 1,000 ML IV SCH ×3 (00:52→11:09)
[2018-08-25] MEDS ORDERED: SODIUM PHOSPHATE/NA BIPHOS 133 ML ENEMA PR ONE (00:53)
[2018-08-25] MEDS ORDERED: ATORVASTATIN CA 10 MG TABLET (FP) ONE (01:54)
[2018-08-25 04:49] VITALS: BMI 25.7
[2018-08-25] MEDS: INSULIN SLIDING SCALE (NOVOLOG) 1 VIAL SQ SCH ×4 (06:02→22:17)
--- NOTE | 2018-08-25 06:43 | PDOC ---
*Physical Exam - Vital Signs Last Vital Signs Temp Pulse Resp BP Pulse Ox 97.8 F 78 20 172/82 H 99 08/25/18 03:51 08/25/18 03:51 08/25/18 03:51 08/25/18 03:51 08/25/18 03:46 - Physical Exam General Appearance: Yes: Nourished ED Treatment Course - LABORATORY CBC & Chemistry Diagram: 08/24/18 18:35 08/24/18 20:17 - ADDITIONAL ORDERS Additional order review: Laboratory Results 08/25/18 08/25/18 08/24/18 00:13 00:13 20:17 Sodium 143 Potassium 5.6 H Chloride 112 H Carbon Dioxide 23 Anion Gap 8 BUN 52 H Creatinine 1.9 H Creat Clearance w eGFR 25.01 Random Glucose 138 H Lactic Acid 1.0 Calcium 8.1 L Phosphorus 4.3 Magnesium 2.1 Total Bilirubin 0.2 AST 31 ALT 24 Alkaline Phosphatase 107 Creatine Kinase 111 Troponin I < 0.02 Total Protein 6.8 Albumin 3.2 L Lipase 554 H Urine Color Urine Appearance Urine pH Ur Specific [place] Urine Protein Urine Glucose (UA) Urine Ketones Urine Blood Urine Nitrite Urine Bilirubin Urine Urobilinogen Ur Leukocyte Esterase Urine WBC (Auto) Urine RBC (Auto) Ur Epithelial Cells Hyaline Casts Urine Mucus 08/24/18 08/24/18 08/24/18 19:00 18:57 18:35 Sodium Cancelled Cancelled Potassium Cancelled Cancelled Chloride Cancelled Cancelled Carbon Dioxide Cancelled Cancelled Anion Gap Cancelled Cancelled BUN Cancelled Cancelled Creatinine Cancelled Cancelled Creat Clearance w eGFR Cancelled Cancelled Random Glucose Cancelled Cancelled Lactic Acid Calcium Cancelled Cancelled Phosphorus Cancelled Magnesium Cancelled Total Bilirubin Cancelled Cancelled AST Cancelled Cancelled ALT Cancelled Cancelled Alkaline Phosphatase Cancelled Cancelled Creatine Kinase Cancelled Troponin I Cancelled Total Protein Cancelled Cancelled Albumin Cancelled Cancelled Lipase Urine Color Ltyellow Urine Appearance Cloudy Urine pH 5.0 Ur Specific [place] 1.013 Urine Protein Negative Urine Glucose (UA) Negative Urine Ketones Negative Urine Blood Negative Urine Nitrite Negative Urine Bilirubin Negative Urine Urobilinogen Negative Ur Leukocyte Esterase 3+ H Urine WBC (Auto) 511 Urine RBC (Auto) 10 Ur Epithelial Cells Rare Hyaline Casts 2 Urine Mucus Rare 08/24/18 18:35 RBC 3.66 MCV 94.2 MCHC 33.2 RDW 13.0 MPV 8.0 - RADIOLOGY Radiology Studies Ordered: Category Date Time Status ABDOMEN & PELVIS CT W/O CONTR [CT] Stat CT Scan 08/25/18 02:04 Taken - Medications Given in the ED: ED Medications Discontinued Medications Generic Name Dose Route Start Last Admin Trade Name Freq PRN Reason Stop Dose Admin Atorvastatin Calcium 10 mg 08/25/18 00:50 08/25/18 02:00 Lipitor - PO 08/25/18 00:51 10 mg ONCE ONE Administration Calcium Gluconate 1,000 mg 08/24/18 22:46 08/25/18 00:00 Calcium Gluconate 10% - IVPB 08/24/18 22:47 1,000 mg ONCE ONE Administration Duloxetine HCl 30 mg 08/25/18 00:48 08/25/18 02:00 Cymbalta - PO 08/25/18 00:49 30 mg ONCE ONE Administration Ceftriaxone Sodium 1,000 mg/ 50 mls @ 100 mls/hr 08/24/18 21:14 08/24/18 21: 33 Dextrose IVPB 08/24/18 21:43 100 mls/hr ONCE ONE Administration Sodium Phosphate 133 ml 08/25/18 00:53 08/25/18 04:54 Fleet Adult Rectal Enema - NM 08/25/18 00:54 Not Given ONCE ONE Sodium Polystyrene Sulfonate 30 gm 08/24/18 23:40 08/25/18 00:18 Kayexalate - PO 08/24/18 23:41 30 gm ONCE ONE Administration *DC/Admit/Observation/Transfer Diagnosis at time of Disposition: Abnormal laboratory test result - Referrals - Patient Instructions - Post Discharge Activity
[2018-08-25] MEDS ORDERED: INSULIN SLIDING SCALE (NOVOLOG) 1 VIAL SQ SCH (07:00)
[2018-08-25] MEDS: BUDESONIDE 0.5 MG/2 ML INH SUSP VIAL NEB SCH ×2 (07:34→20:29)
[2018-08-25 07:40] LABS: BASO % 0.5 % (0-2.0); EOS % 2.3 % (0-4.5); HEMATOCRIT 32.2 % (32.4-45.2); HEMOGLOBIN 10.4 GM/dL (10.7-15.3); LYMPH % 25.5 % (8-40); MCH 30.6 pg (25.7-33.7); MCHC 32.3 g/dl (32.0-36.0); MEAN CELL VOLUME 94.7 fl (80-96); MEAN PLT VOLUME 7.9 fl (7.5-11.1); MONO % 12.1 % (3.8-10.2); NEUT % 59.6 % (42.8-82.8); PLATELET COUNT 179 K/MM3 (134-434); WHITE BLOOD COUNT 7.8 K/mm3 (4.0-10.0)
[2018-08-25 08:32] LABS: ANION GAP 5 MMOL/L (8-16); BLOOD UREA NITROGEN 53 mg/dL (7-18); CHLORIDE 116 mmol/L (98-107); CO2 21 mmol/L (21-32); CREATININE 1.6 mg/dL (0.55-1.3); GLUCOSE,RANDOM 101 mg/dL (74-106); POTASSIUM 4.8 mmol/L (3.5-5.1); SODIUM 142 mmol/L (136-145)
[2018-08-25] MEDS ORDERED: PT OWN MED DRAWER 7, Y5N ONE ×2 (10:32→15:29)
[2018-08-25] MEDS: APIXABAN 2.5 MG TABLET PO SCH ×2 (10:40→22:16)
[2018-08-25] MEDS: CARVEDILOL 6.25 MG TABLET (FP) PO SCH ×2 (10:40→22:17)
[2018-08-25] MEDS: ASPIRIN COATED 81 MG TABLET.EC PO SCH (10:40)
[2018-08-25] MEDS: HEPARIN NA (PORCINE) 5,000 UNITS/ML 1ML VIAL SQ SCH ×3 (10:40→22:18)
--- NOTE | 2018-08-25 12:45 | EKG ---
Test Reason : Blood Pressure : / mmHG Vent. Rate : 071 BPM Atrial Rate : 071 BPM P-R Int : 224 ms QRS Dur : 084 ms QT Int : 372 ms P-R-T Axes : 095 -34 106 degrees QTc Int : 404 ms SINUS RHYTHM WITH 1ST DEGREE A-V BLOCK LEFT AXIS DEVIATION POSSIBLE ANTERIOR INFARCT (CITED ON OR BEFORE 02-MAR-2018) T WAVE ABNORMALITY, CONSIDER LATERAL ISCHEMIA ABNORMAL ECG WHEN COMPARED WITH ECG OF 02-MAR-2018 00:01, NO SIGNIFICANT CHANGE WAS FOUND Confirmed by Raheem Mcneil ([id number]) on 08/25/2018 12:45:01 PM Referred By: Confirmed By:Raheem Mcneil
[2018-08-25] MEDS ORDERED: cefTRIAXone SODIUM 1 GM VIAL ONE (17:28)
[2018-08-25] MEDS ORDERED: DEXTROSE 5%-WATER 100 ML IVPB ONE (17:29)
[2018-08-25] MEDS: CEFTRIAXONE 1 GM in DEXTROSE 5%-WATER 100 ML IVPB SCH (17:50)
[2018-08-25] MEDS: DONEPEZIL HCL 5 MG TABLET (FP) PO SCH (22:17)
[2018-08-25] MEDS: MIRTAZAPINE 15 MG TABLET (FP) PO SCH (22:17)
[2018-08-26] MEDS: INSULIN SLIDING SCALE (NOVOLOG) 1 VIAL SQ SCH ×4 (06:30→21:55)
[2018-08-26] MEDS: BUDESONIDE 0.5 MG/2 ML INH SUSP VIAL NEB SCH ×2 (07:20→07:41)
[2018-08-26 07:44] LABS: HEMATOCRIT 35.7 % (32.4-45.2); HEMOGLOBIN 11.5 GM/dL (10.7-15.3); MCH 30.3 pg (25.7-33.7); MCHC 32.1 g/dl (32.0-36.0); MEAN CELL VOLUME 94.3 fl (80-96); PLATELET COUNT 183 K/MM3 (134-434); RBC 3.79 M/mm3 (3.60-5.2); RDW 13.2 % (11.6-15.6); WHITE BLOOD COUNT 8.3 K/mm3 (4.0-10.0)
[2018-08-26 08:15] LABS: ANION GAP 8 MMOL/L (8-16); BLOOD UREA NITROGEN 39 mg/dL (7-18); CALCIUM 9.2 mg/dL (8.5-10.1); CHLORIDE 110 mmol/L (98-107); CO2 24 mmol/L (21-32); CREATININE 1.5 mg/dL (0.55-1.3); GLUCOSE,RANDOM 135 mg/dL (74-106); MAGNESIUM 1.9 mg/dL (1.8-2.4); PHOSPHOROUS 4.7 mg/dL (2.5-4.9); POTASSIUM 4.3 mmol/L (3.5-5.1); SODIUM 142 mmol/L (136-145)
[2018-08-26] MEDS ORDERED: PT OWN MED DRAWER 7, Y5N ONE ×3 (10:17→21:33)
[2018-08-26] MEDS ORDERED: cefTRIAXone SODIUM 1 GM VIAL ONE (10:17)
[2018-08-26] MEDS ORDERED: DEXTROSE 5%-WATER 100 ML IVPB ONE (10:17)
[2018-08-26] MEDS: APIXABAN 2.5 MG TABLET PO SCH ×2 (10:33→21:44)
[2018-08-26] MEDS: ASPIRIN COATED 81 MG TABLET.EC PO SCH (10:33)
[2018-08-26] MEDS: CARVEDILOL 6.25 MG TABLET (FP) PO SCH ×2 (10:33→21:44)
[2018-08-26] MEDS: HEPARIN NA (PORCINE) 5,000 UNITS/ML 1ML VIAL SQ SCH ×2 (10:34→21:45)
--- NOTE | 2018-08-26 11:03 | PN ---
Progress Note, Physician Chief Complaint: patient awake alert lost iv access sent in to hospital from bun 76 and cr 2.0 asnd potassium 6.5 at NH - Current Medication List Current Medications: Active Medications Apixaban (Eliquis -) 2.5 mg PO BID [facility] Last Admin: 08/26/18 10:33 Dose: 2.5 mg Aspirin (Ecotrin -) 81 mg PO DAILY [facility] Last Admin: 08/26/18 10:33 Dose: 81 mg Budesonide (Pulmicort 0.5 Mg Nebulizer -) 1 amp NEB RBID [facility] Last Admin: 08/26/18 07:20 Dose: 1 amp Carbidopa/Levodopa (Sinemet *Cr* 25/100 -) 1 combo PO TID [facility] Last Admin: 08/26/18 06:30 Dose: 1 combo Carvedilol (Coreg -) 6.25 mg PO BID [facility] Last Admin: 08/26/18 10:33 Dose: 6.25 mg Docusate Sodium (Colace -) 100 mg PO BID PRN PRN Reason: CONSTIPATION Donepezil HCl (Aricept -) 5 mg PO HS [facility] Last Admin: 08/25/18 22:17 Dose: 5 mg Heparin Sodium (Porcine) (Heparin -) 5,000 unit SQ BID [facility] Last Admin: 08/26/18 10:34 Dose: 5,000 unit Sodium Chloride (Normal Saline -) 1,000 mls @ 100 mls/hr IV ASDIR [facility] Last Admin: 08/25/18 11:09 Dose: 100 mls/hr Ceftriaxone Sodium 1 gm/ (Dextrose) 100 mls @ 200 mls/hr IVPB DAILY [facility]; Protocol Last Admin: 08/25/18 17:50 Dose: 200 mls/hr Insulin Aspart (Novolog Vial Sliding Scale -) 1 vial SQ ACHS [facility]; Protocol Last Admin: 08/26/18 06:30 Dose: Not Given Mirtazapine (Remeron -) 15 mg PO HS [facility] Last Admin: 08/25/18 22:17 Dose: 15 mg - Objective Vital Signs: Vital Signs Temperature 97.9 F 08/26/18 02:00 Pulse Rate 70 08/26/18 02:00 Respiratory Rate 20 08/26/18 03:00 Blood Pressure 133/72 08/26/18 02:00 O2 Sat by Pulse Oximetry (%) 99 08/26/18 03:00 Constitutional: Yes: Calm Neck: Yes: Trachea Midline Cardiovascular: Yes: Regular Rate and Rhythm, S1, S2 Respiratory: Yes: CTA Bilaterally Gastrointestinal: Yes: Normal Bowel Sounds, Soft Edema: No Neurological: Yes: Alert, Oriented (to name) Labs: CBC, BMP 08/26/18 07:00 08/26/18 07:00 Problem List - Problems (1) NAOMY (acute kidney injury) Assessment/Plan: IVF renal consult renal sono cr improved form 1.9 ot 1.5 and bun from 52 now 39 acute on chroic kidney disease Code(s): N17.9 - ACUTE KIDNEY FAILURE, UNSPECIFIED (2) CAD (coronary artery disease) Assessment/Plan: coreg aspirin and atorvastatin Code(s): I25.10 - ATHSCL HEART DISEASE OF [place] CORONARY ARTERY W/O ANG PCTRS (3) Depression Assessment/Plan: cymbalta and remeron Code(s): F32.9 - MAJOR DEPRESSIVE DISORDER, SINGLE EPISODE, UNSPECIFIED (4) Abnormal laboratory test result Assessment/Plan: potassium level improved from 5. to 4.3 Code(s): R89.9 - UNSP ABNORMAL FINDING IN SPECIMENS FROM OTH ORG/TISS (5) Diabetes Assessment/Plan: [id number] 7.5 sliding scale Code(s): E11.9 - TYPE 2 DIABETES MELLITUS WITHOUT COMPLICATIONS Qualifiers: Diabetes mellitus type: type 2 (6) Dementia Assessment/Plan: aricept and sinemet Code(s): F03.90 - UNSPECIFIED DEMENTIA WITHOUT BEHAVIORAL DISTURBANCE Qualifiers: Dementia type: Alzheimer's disease Dementia behavioral disturbance: without behavioral disturbance (7) UTI (urinary tract infection) Assessment/Plan: rocephin urine culture is pending Code(s): N39.0 - URINARY TRACT INFECTION, SITE NOT SPECIFIED (8) DVT (deep venous thrombosis) Assessment/Plan: eliquis 2.5 mg po bid Code(s): I82.409 - ACUTE EMBOLISM AND THOMBOS UNSP DEEP VN UNSP LOWER EXTREMITY
--- NOTE | 2018-08-26 15:49 | CONSULT ---
Consult Consult Specialty:: Nephrology Reason for Consultation:: NAOMY - History of Present Illness Chief Complaint: sent in for hyperkalemia History of Present Illness: Pt is an 88 year old female with pmhx of CAD, HTN, DM2, CKD, CHF, HLD, dementia , CVA and asthma who was sent to [facility] ER for hyperkalemia and worsening renal function. She is awake and alert. She denies shortness of breath. She denies dysuria. She does have history of CKD. She complains of poor appetite. She is a poor historian. She denies chest pain or palpitations. Her potassium and renal function are improving. 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: CVA Cardio/Vascular: Yes: CAD, HTN, Hyperlipdemia Renal/: Yes: Renal Inusuff - Alcohol/Substance Use Hx Alcohol Use: No - Smoking History Smoking history: Unknown if ever smoked Have you smoked in the past 12 months: No Home Medications - Allergies Allergies/Adverse Reactions: Allergies Allergy/AdvReac Type Severity Reaction Status Date / Time No Known Allergies Allergy Verified 08/25/18 03:06 - Home Medications Home Medications: Ambulatory Orders Acetaminophen [Tylenol] 650 mg PO TID PRN 03/01/18 Apixaban [Eliquis] 2.5 mg PO BID 03/01/18 Aspirin 81 mg PO DAILY 03/01/18 Atorvastatin Calcium 10 mg PO HS 03/01/18 Budesonide [Pulmicort 0.5 mg Nebulizer -] 1 neb NEB BID 03/01/18 Carvedilol [Coreg -] 6.25 mg PO BID 03/01/18 Docusate Sodium [Colace] 100 mg PO BID 03/01/18 Duloxetine HCl [Cymbalta -] 30 mg PO DAILY 03/01/18 Mirtazapine [Remeron -] 15 mg PO HS 03/01/18 Nitroglycerin 0.4 mg SL PRN PRN 03/01/18 Polyethylene Glycol 3350 [Clearlax] 17 gm PO DAILY 03/01/18 Lisinopril [Prinivil] 10 mg PO DAILY tablet 03/04/18 Carbidopa/Levodopa *Cr* 25/100 [Sinemet *Cr* 25/100 -] 1 combo PO TID 08/24/18 Donepezil HCl [Aricept -] 5 mg PO DAILY 08/24/18 Insulin Lispro [Humalog] 5 unit SQ BID 08/24/18 Linagliptin [Tradjenta] 5 mg PO DAILY 08/24/18 Sodium Polystyrene Sulfonate 30 gm PO DAILY 08/24/18 Family Disease History - Family Disease History Family History: Denies Review of Systems - Review of Systems Constitutional: reports: No Symptoms Eyes: reports: No Symptoms HENT: reports: No Symptoms Neck: reports: No Symptoms Cardiovascular: reports: No Symptoms Respiratory: reports: No Symptoms Gastrointestinal: reports: No Symptoms Genitourinary: reports: No Symptoms Musculoskeletal: reports: No Symptoms Integumentary: reports: No Symptoms Neurological: reports: No Symptoms Endocrine: reports: No Symptoms Hematology/Lymphatic: reports: No Symptoms Psychiatric: reports: No Symptoms Physical Exam Vital Signs: Vital Signs Temperature 98.3 F 08/26/18 14:15 Pulse Rate 80 08/26/18 14:15 Respiratory Rate 20 08/26/18 14:15 Blood Pressure 128/56 L 08/26/18 14:15 O2 Sat by Pulse Oximetry (%) 99 08/26/18 03:00 Constitutional: Yes: Calm Eyes: Yes: Conjunctiva Clear HENT: Yes: Atraumatic Neck: Yes: Supple Cardiovascular: Yes: S1, S2 Respiratory: Yes: CTA Bilaterally Gastrointestinal: Yes: Normal Bowel Sounds, Soft Renal/: Yes: WNL Musculoskeletal: Yes: WNL Edema: No Neurological: Yes: Oriented Psychiatric: Yes: Oriented Labs: CBC, BMP 08/26/18 07:00 08/26/18 07:00 Laboratory Tests 03/04/18 08/24/18 08/24/18 06:00 18:57 20:17 Hgb Potassium 5.6 H BUN Creatinine 1.3 H 1.9 H Urine Protein Negative Urine Blood Negative 08/25/18 08/25/18 08/26/18 06:00 06:00 07:00 Hgb 10.4 L 11.5 Potassium 4.8 BUN Creatinine 1.6 H Urine Protein Urine Blood 08/26/18 07:00 Hgb Potassium 4.3 BUN 39 H Creatinine 1.5 H Urine Protein Urine Blood Imaging - Results X-ray: Report Reviewed Problem List - Problems (1) Hyperkalemia Code(s): E87.5 - HYPERKALEMIA (2) CKD (chronic kidney disease) Code(s): N18.9 - CHRONIC KIDNEY DISEASE, UNSPECIFIED (3) HTN (hypertension) Code(s): I10 - ESSENTIAL (PRIMARY) HYPERTENSION Assessment/Plan Current Medications Generic Name Dose Route Start Last Admin Trade Name Freq PRN Reason Stop Dose Admin Apixaban 2.5 mg 08/25/18 10:00 08/26/18 10:33 Eliquis - PO 2.5 mg BID TABATHA Administration Aspirin 81 mg 08/25/18 10:00 08/26/18 10:33 Ecotrin - PO 81 mg DAILY TABATHA Administration Budesonide 1 amp 08/25/18 08:00 08/26/18 07:20 Pulmicort 0.5 Mg Nebulizer - NEB 1 amp RBID TABATHA Administration Carbidopa/Levodopa 1 combo 08/25/18 06:00 08/26/18 14:25 Sinemet *Cr* 25/100 - PO 1 combo TID TABATHA Administration Carvedilol 6.25 mg 08/25/18 10:00 08/26/18 10:33 Coreg - PO 6.25 mg BID TABATHA Administration Docusate Sodium 100 mg 08/25/18 00:49 Colace - PO BID PRN CONSTIPATION Donepezil HCl 5 mg 08/25/18 22:00 08/25/18 22:17 Aricept - PO 5 mg HS TABTAHA Administration Duloxetine HCl 30 mg 08/27/18 10:00 Cymbalta - PO DAILY TABATHA Heparin Sodium (Porcine) 5,000 unit 08/25/18 10:00 08/26/18 10:34 Heparin - SQ 5,000 unit BID TABATHA Administration Sodium Chloride 1,000 mls @ 100 mls/hr 08/24/18 23:00 08/25/18 11:09 Normal Saline - IV 100 mls/hr ASDIR TABATHA Administration Ceftriaxone Sodium 1 gm/ 100 mls @ 200 mls/hr 08/25/18 17:30 08/25/18 17:50 Dextrose IVPB 200 mls/hr DAILY TABATHA Administration Protocol Insulin Aspart 1 vial 08/25/18 07:00 08/26/18 12:03 Novolog Vial Sliding Scale - SQ Not Given ACHS TABATHA Protocol Mirtazapine 15 mg 08/25/18 22:00 08/25/18 22:17 Remeron - PO 15 mg HS TABATHA Administration Impression 1. CKD 2. naomy 3. hyperkalemia 4. CAD 5. HTN 6. DM 7. CHF 8. HLD 9. 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
[2018-08-26] MEDS: CEFTRIAXONE 1 GM in DEXTROSE 5%-WATER 100 ML IVPB SCH (15:54)
[2018-08-26] MEDS ORDERED: SODIUM CHLORIDE 0.45% 1,000 ML IV SCH (16:00)
[2018-08-26] MEDS: MIRTAZAPINE 15 MG TABLET (FP) PO SCH (21:44)
[2018-08-26] MEDS: DONEPEZIL HCL 5 MG TABLET (FP) PO SCH (21:44)
[2018-08-27 06:32] LABS: EOS % 2.7 % (0-4.5); HEMATOCRIT 32.9 % (32.4-45.2); HEMOGLOBIN 10.7 GM/dL (10.7-15.3); MCH 30.3 pg (25.7-33.7); MCHC 32.4 g/dl (32.0-36.0); MEAN CELL VOLUME 93.5 fl (80-96); MEAN PLT VOLUME 7.9 fl (7.5-11.1); MONO % 11.8 % (3.8-10.2); NEUT % 56.5 % (42.8-82.8); PLATELET COUNT 158 K/MM3 (134-434); RBC 3.52 M/mm3 (3.60-5.2); RDW 13.1 % (11.6-15.6); WHITE BLOOD COUNT 7.9 K/mm3 (4.0-10.0)
[2018-08-27] MEDS: INSULIN SLIDING SCALE (NOVOLOG) 1 VIAL SQ SCH ×3 (06:53→16:55)
[2018-08-27 07:07] LABS: ALBUMIN 3.1 g/dl (3.4-5.0); ALK PHOS 108 U/L (45-117); ANION GAP 8 MMOL/L (8-16); BILIRUBIN,TOTAL 0.3 mg/dL (0.2-1); BLOOD UREA NITROGEN 39 mg/dL (7-18); CALCIUM 8.8 mg/dL (8.5-10.1); CHLORIDE 110 mmol/L (98-107); CO2 24 mmol/L (21-32); CREATININE 1.6 mg/dL (0.55-1.3); GLUCOSE,RANDOM 92 mg/dL (74-106); POTASSIUM 4.5 mmol/L (3.5-5.1); SGOT/AST 28 U/L (15-37); SGPT/ALT 12 U/L (13-61); SODIUM 142 mmol/L (136-145); TOT PROT 6.6 g/dl (6.4-8.2)
[2018-08-27] MEDS: BUDESONIDE 0.5 MG/2 ML INH SUSP VIAL NEB SCH (07:40)
[2018-08-27] MEDS ORDERED: PT OWN MED DRAWER 7, Y5N ONE ×2 (09:44→13:06)
[2018-08-27] MEDS ORDERED: DEXTROSE 5%-WATER 100 ML IVPB ONE (09:44)
[2018-08-27] MEDS ORDERED: cefTRIAXone SODIUM 1 GM VIAL ONE (09:44)
[2018-08-27] MEDS: ASPIRIN COATED 81 MG TABLET.EC PO SCH (09:50)
[2018-08-27] MEDS: CEFTRIAXONE 1 GM in DEXTROSE 5%-WATER 100 ML IVPB SCH (09:50)
[2018-08-27] MEDS: APIXABAN 2.5 MG TABLET PO SCH (09:50)
[2018-08-27] MEDS: HEPARIN NA (PORCINE) 5,000 UNITS/ML 1ML VIAL SQ SCH (09:50)
[2018-08-27] MEDS: CARVEDILOL 6.25 MG TABLET (FP) PO SCH (09:51)
[2018-08-27] MEDS ORDERED: DULoxetine HCL 30 MG CAPSULE.DR (FP) PO SCH (10:00)
[2018-08-27 11:01] LABS: PH,URINE 5.5 (5.0-8.0); URINE APPEARANCE Clear; URINE BILIRUBIN Negative (<2.0 mg/dL); URINE COLOR Yellow; URINE GLUCOSE (UA) Negative (NEGATIVE); URINE KETONE Negative (NEGATIVE); URINE LEUK ESTERASE 3+ (NEGATIVE); URINE NITRITE Negative (NEGATIVE); URINE PROTEIN Negative (NEGATIVE); URINE UROBILINOGEN 0.2 mg/dL (0.2-1.0)
[2018-08-27] MEDS ORDERED: SODIUM CHLORIDE 0.45% 1,000 ML IV SCH (13:17)
--- NOTE | 2018-08-27 13:17 | PN ---
Progress Note, Physician History of Present Illness: Pt seen and examined at bedside. She is tolerating diet. She denies dysuria or hematuria. - Current Medication List Current Medications: Active Medications Apixaban (Eliquis -) 2.5 mg PO BID COUNT INCLUDES THE [facility] Last Admin: 08/27/18 09:50 Dose: 2.5 mg Aspirin (Ecotrin -) 81 mg PO DAILY COUNT INCLUDES THE [facility] Last Admin: 08/27/18 09:50 Dose: 81 mg Budesonide (Pulmicort 0.5 Mg Nebulizer -) 1 amp NEB RBID COUNT INCLUDES THE [facility] Last Admin: 08/27/18 07:40 Dose: 1 amp Carbidopa/Levodopa (Sinemet *Cr* 25/100 -) 1 combo PO TID COUNT INCLUDES THE [facility] Last Admin: 08/27/18 06:36 Dose: 1 combo Carvedilol (Coreg -) 6.25 mg PO BID COUNT INCLUDES THE [facility] Last Admin: 08/27/18 09:51 Dose: 6.25 mg Docusate Sodium (Colace -) 100 mg PO BID PRN PRN Reason: CONSTIPATION Donepezil HCl (Aricept -) 5 mg PO HS COUNT INCLUDES THE [facility] Last Admin: 08/26/18 21:44 Dose: 5 mg Duloxetine HCl (Cymbalta -) 30 mg PO DAILY COUNT INCLUDES THE [facility] Last Admin: 08/27/18 09:51 Dose: 30 mg Heparin Sodium (Porcine) (Heparin -) 5,000 unit SQ BID COUNT INCLUDES THE [facility] Last Admin: 08/27/18 09:50 Dose: 5,000 unit Ceftriaxone Sodium 1 gm/ (Dextrose) 100 mls @ 200 mls/hr IVPB DAILY COUNT INCLUDES THE [facility]; Protocol Last Admin: 08/27/18 09:50 Dose: 200 mls/hr Sodium Chloride (1/2 Normal Saline) 1,000 mls @ 42 mls/hr IV ASDIR COUNT INCLUDES THE [facility] Last Admin: 08/26/18 16:00 Dose: 42 mls/hr Insulin Aspart (Novolog Vial Sliding Scale -) 1 vial SQ ACHS COUNT INCLUDES THE [facility]; Protocol Last Admin: 08/27/18 11:20 Dose: Not Given Mirtazapine (Remeron -) 15 mg PO HS COUNT INCLUDES THE [facility] Last Admin: 08/26/18 21:44 Dose: 15 mg - Objective Vital Signs: Vital Signs Temperature 98.1 F 08/27/18 09:00 Pulse Rate 80 08/27/18 09:00 Respiratory Rate 18 08/27/18 09:00 Blood Pressure 122/60 08/27/18 09:00 O2 Sat by Pulse Oximetry (%) 100 08/27/18 03:00 Constitutional: Yes: Calm Eyes: Yes: Conjunctiva Clear HENT: Yes: Atraumatic Neck: Yes: Supple Cardiovascular: Yes: S1, S2 Respiratory: Yes: CTA Bilaterally Genitourinary: Yes: WNL Musculoskeletal: Yes: WNL Edema: No Neurological: Yes: Oriented Psychiatric: Yes: Oriented Labs: CBC, BMP 08/27/18 06:05 08/27/18 06:05 Problem List - Problems (1) Hyperkalemia Code(s): E87.5 - HYPERKALEMIA (2) CKD (chronic kidney disease) Code(s): N18.9 - CHRONIC KIDNEY DISEASE, UNSPECIFIED (3) HTN (hypertension) Code(s): I10 - ESSENTIAL (PRIMARY) HYPERTENSION Assessment/Plan Current Medications Generic Name Dose Route Start Last Admin Trade Name Freq PRN Reason Stop Dose Admin Apixaban 2.5 mg 08/25/18 10:00 08/27/18 09:50 Eliquis - PO 2.5 mg BID TABATHA Administration Aspirin 81 mg 08/25/18 10:00 08/27/18 09:50 Ecotrin - PO 81 mg DAILY TABATHA Administration Budesonide 1 amp 08/25/18 08:00 08/27/18 07:40 Pulmicort 0.5 Mg Nebulizer - NEB 1 amp RBID TABATHA Administration Carbidopa/Levodopa 1 combo 08/25/18 06:00 08/27/18 06:36 Sinemet *Cr* 25/100 - PO 1 combo TID TABATHA Administration Carvedilol 6.25 mg 08/25/18 10:00 08/27/18 09:51 Coreg - PO 6.25 mg BID TABATHA Administration Docusate Sodium 100 mg 08/25/18 00:49 Colace - PO BID PRN CONSTIPATION Donepezil HCl 5 mg 08/25/18 22:00 08/26/18 21:44 Aricept - PO 5 mg HS TABATHA Administration Duloxetine HCl 30 mg 08/27/18 10:00 08/27/18 09:51 Cymbalta - PO 30 mg DAILY TABATHA Administration Heparin Sodium (Porcine) 5,000 unit 08/25/18 10:00 08/27/18 09:50 Heparin - SQ 5,000 unit BID TABATHA Administration Ceftriaxone Sodium 1 gm/ 100 mls @ 200 mls/hr 08/25/18 17:30 08/27/18 09:50 Dextrose IVPB 200 mls/hr DAILY TABATHA Administration Protocol Sodium Chloride 1,000 mls @ 42 mls/hr 08/26/18 16:00 08/26/18 16:00 1/2 Normal Saline IV 42 mls/hr ASDIR TABATHA Administration Insulin Aspart 1 vial 08/25/18 07:00 08/27/18 11:20 Novolog Vial Sliding Scale - SQ Not Given ACHS TABATHA Protocol Mirtazapine 15 mg 08/25/18 22:00 08/26/18 21:44 Remeron - PO 15 mg HS TABATHA Administration Impression 1. CKD 2. leroy 3. hyperkalemia 4. CAD 5. HTN 6. DM 7. CHF 8. HLD 9. dementia Plan - cont with fluids - repeat labs in am - renal ultrasound reviewed - will need outpt follow up - potassium is stable - renal function is stabilizing - avoid nsaids - will follow - encourage PO intake
--- NOTE | 2018-08-27 14:18 | DS ---
Physical Examination Vital Signs: Vital Signs Temperature 98.1 F 08/27/18 09:00 Pulse Rate 80 08/27/18 09:00 Respiratory Rate 18 08/27/18 09:00 Blood Pressure 122/60 08/27/18 09:00 O2 Sat by Pulse Oximetry (%) 100 08/27/18 03:00 Constitutional: Yes: Calm Cardiovascular: Yes: Regular Rate and Rhythm, S1, S2 Respiratory: Yes: CTA Bilaterally Gastrointestinal: Yes: Normal Bowel Sounds, Soft Edema: No Neurological: Yes: Alert, Oriented Labs: CBC, BMP 08/27/18 06:05 08/27/18 06:05 Discharge Summary Reason For Visit: HYPERKALEMIA Current Active Problems NAOMY (acute kidney injury) (Acute) Abnormal laboratory test result (Acute) DVT (deep venous thrombosis) (Acute) Dementia (Acute) Depression (Acute) Diabetes (Acute) Hyperkalemia (Acute) UTI (urinary tract infection) (Acute) Hospital Course: HISTORY OF PRESENT ILLNESS: 88 year old female from nursing facility with a significant past medical history of CAD s/p stents x2 (), HTN, DM2, CKD, OA, CHF, HLD, dementia, parkinson's, TIA/CVA, and asthma sent to ER from alf for hyperkalemia and and NAOMY on blood tests performed at alf. Her daughter stated that the patient's potassium at the alf was high and they were unable place an IV, prompting visit to hospital. Pt also c/o intermittent abdominal pain which improves with BM. She reports constipation. ER course was notable for: (1) IV fluid (2) calcium gluconate in hospital: patinent potassium improved renal function is improving renal sono noted0 normal kidney no hydronephrosis uti on iv abx julianne change to po abx keflex 500mg po bid for 7 days Condition: Improved - Instructions Diet, Activity, Other Instructions: keflex 500mg po q12 hr for 7 days protonix 40mg daily repeat bmp in one week to check bun/cr [facility] - Home Medications Comprehensive Discharge Medication List: Ambulatory Orders Acetaminophen [Tylenol] 650 mg PO TID PRN 03/01/18 Apixaban [Eliquis] 2.5 mg PO BID 03/01/18 Aspirin 81 mg PO DAILY 03/01/18 Atorvastatin Calcium 10 mg PO HS 03/01/18 Budesonide [Pulmicort 0.5 mg Nebulizer -] 1 neb NEB BID 03/01/18 Carvedilol [Coreg -] 6.25 mg PO BID 03/01/18 Docusate Sodium [Colace] 100 mg PO BID 03/01/18 Duloxetine HCl [Cymbalta -] 30 mg PO DAILY 03/01/18 Mirtazapine [Remeron -] 15 mg PO HS 03/01/18 Nitroglycerin 0.4 mg SL PRN PRN 03/01/18 Polyethylene Glycol 3350 [Clearlax] 17 gm PO DAILY 03/01/18 Lisinopril [Prinivil] 10 mg PO DAILY tablet 03/04/18 Carbidopa/Levodopa *Cr* [Sinemet *Cr* -] 1 combo PO TID 08/24/18 Donepezil HCl [Aricept -] 5 mg PO DAILY 08/24/18 Insulin Lispro [Humalog] 5 unit SQ BID 08/24/18 Linagliptin [Tradjenta] 5 mg PO DAILY 08/24/18 Sodium Polystyrene Sulfonate 30 gm PO DAILY 08/24/18
[2018-08-27 14:28] VITALS: BP 112/53; PULSE 82; TEMP 98.4
[2018-08-27] MEDS ORDERED: PANTOPRAZOLE 40 MG TABLET (FP) PO SCH (14:30)
== END 2018-08-27 17:22 ==
LOC: JER 17:32 → JERBED 08-25 00:19 → J5S 08-25 03:10
PROVIDERS: ADMIT Internal Medicine; ATTEND Family Medicine
PROC: 3E03329 Introduction of Other Anti-infective into Peripheral Vein, Percutaneous Approach (ICD-10-PCS; principal; 2018-08-25)
PROC: 3E033GC Introduction of Other Therapeutic Substance into Peripheral Vein, Percutaneous Approach (ICD-10-PCS; 2018-08-25)
PROC: 3E013GC Introduction of Other Therapeutic Substance into Subcutaneous Tissue, Percutaneous Approach (ICD-10-PCS; 2018-08-25)
PROC: 3E0F7GC Introduction of Other Therapeutic Substance into Respiratory Tract, Via Natural or Artificial Opening (ICD-10-PCS; 2018-08-25)
DX: E87.6 Hypokalemia (principal); E11.22 Type 2 diabetes mellitus with diabetic chronic kidney disease; I12.9 Hypertensive chronic kidney disease with stage 1 through stage 4 chronic kidney disease, or unspecified chronic kidney disease; N18.9 Chronic kidney disease, unspecified; N17.9 Acute kidney failure, unspecified; Z79.4 Long term (current) use of insulin; R10.9 Unspecified abdominal pain; I11.0 Hypertensive heart disease with heart failure; E78.5 Hyperlipidemia, unspecified; I25.10 Atherosclerotic heart disease of native coronary artery without angina pectoris; I50.9 Heart failure, unspecified; G20 Parkinson's disease; F02.80 Dementia in other diseases classified elsewhere, unspecified severity, without behavioral disturbance, psychotic disturbance, mood disturbance, and anxiety; J45.909 Unspecified asthma, uncomplicated; I69.354 Hemiplegia and hemiparesis following cerebral infarction affecting left non-dominant side; N39.0 Urinary tract infection, site not specified; Z79.82 Long term (current) use of aspirin; Z85.3 Personal history of malignant neoplasm of breast; Z95.5 Presence of coronary angioplasty implant and graft; F32.9 Major depressive disorder, single episode, unspecified
CPT/HCPCS: 36415; 71045-TC-FY; 74176-TC; 76775-TC; 80048; 80053; 81003; 81015; 82436; 82550; 82570; 82962; 83036; 83605; 83690; 83735; 84100; 84133; 84300; 84484; 85025; 85027; 87086; 87186; 93005; 93010; 94640; 96365; 96372; 96375; 99283-25; G0378; J1644; J7030

== ENCOUNTER 2019-01-03 17:56 | Emergency (ER) | payer OTHER ==
--- NOTE | 2019-01-03 18:19 | PDOC ---
History of Present Illness - General Stated Complaint: BILATERAL LEG PAIN Time Seen by Provider: 01/03/19 18:17 History Source: Patient, [facility] Exam Limitations: No Limitations - History of Present Illness Initial Comments: 01/03/19 18:20 88 year old woman from [facility] with a PMHx of: CVA (L-sided residual), Parkinson's, Dementia, CAD s/p stents x2 (), Angina, HTN, DM, CKD, Asthma who presents with bilateral lower leg pain for 3 days was controlled w/ Tramadol 50 Q8H, today the patient was complaining of pain and her roommate called 911 to go to the ED since she was complaining of pain. The patient did not receive her second dose of tramadol today that she was due for. Per nursing the patient has been afebrile and been at baseline. At bedside the patient complains of leg pain. Past History - Past Medical History Allergies/Adverse Reactions: Allergies Allergy/AdvReac Type Severity Reaction Status Date / Time No Known Allergies Allergy Verified 10/02/18 18:23 Home Medications: Ambulatory Orders Acetaminophen [Acetaminophen 8 Hour] 650 mg PO PRN PRN 10/02/18 Apixaban [Eliquis] 2.5 mg PO DAILY 10/02/18 Atorvastatin Ca [Lipitor] 10 mg PO HS 10/02/18 Carbidopa/Levodopa *Cr* 25/100 [Sinemet *Cr* 25/100 -] 1 combo PO TID 10/02/18 Docusate Sodium [Colace] 100 mg PO DAILY 10/02/18 Donepezil HCl [Aricept] 5 mg PO TID 10/02/18 Duloxetine HCl [Cymbalta] 30 mg PO DAILY 10/02/18 Hydrocortisone 2.5% Topical Cr [Anusol-Hc -] 1 applic RC DAILY 10/02/18 Latanoprost 0.005% Eye Drops [Xalatan 0.005% Eye Drops -] 1 drop OS HS 10/02/18 Linagliptin [Tradjenta] 5 mg PO DAILY 10/02/18 Mirtazapine [Remeron -] 15 mg PO DAILY 10/02/18 Nitroglycerin 0.4 mg SL PRN PRN 10/02/18 Pantoprazole Sodium [Protonix] 40 mg PO DAILY 10/02/18 Polyethylene Glycol 3350 [Glycolax] 119 gm PO DAILY 10/02/18 Aspirin [ASA -] 81 mg PO DAILY tab.chew 10/06/18 Loratadine [Claritin -] 10 mg PO DAILY tablet 10/06/18 Lorazepam Injection [Ativan Injection -] 1 mg IM Q6H PRN disp.syrin MDD 4 10/06 Tamsulosin HCl [Flomax -] 0.4 mg PO DAILY@0830 cap.er.24h 10/06/18 levETIRAcetam [Keppra -] 500 mg PO BID tablet 10/06/18 Anemia: No Asthma: Yes Cancer: Yes (malignant neoplasmt breast) Cardiac Disorders: Yes (angina pectoris, Artherosclerotic coronary artery disease) CVA: 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) COPD: No CHF: Yes Dementia: No Diabetes: Yes GI Disorders: No Disorders: No HTN: Yes Hypercholesterolemia: Yes Liver Disease: No Psychiatric Problems: Yes (depresive disorder) Seizures: No Thyroid Disease: No - Surgical History Abdominal Surgery: No Appendectomy: No Cardiac Surgery: No Cholecystectomy: No Lung Surgery: No Neurologic Surgery: No Orthopedic Surgery: No - Suicide/Smoking/Psychosocial Hx Smoking History: Unknown if ever smoked Have you smoked in the past 12 months: No Hx Alcohol Use: No Drug/Substance Use Hx: No Substance Use Type: None Review of Systems - Review of Systems Able to Perform ROS?: No (2/2 dementia) Is the patient limited Macedonian proficient: No *Physical Exam - Physical Exam Comments: 01/03/19 20:14 GENERAL: demented HEAD: No signs of trauma, normocephalic, atraumatic EYES:EOMI, sclera anicteric, conjunctiva clear ENT: oropharynx clear without exudates. Moist mucosa NECK: Normal ROM, supple LUNGS: No distress, speaks full sentences, clear to auscultation bilaterally, L breast mastectomy HEART: Regular rate and rhythm, normal S1 and S2, no murmurs, rubs or gallops, peripheral pulses normal and equal bilaterally. ABDOMEN: Soft, nontender, normoactive bowel sounds. No guarding, no rebound. No masses EXTREMITIES : Normal inspection, Normal range of motion, no edema. No clubbing or cyanosis. NEUROLOGICAL: dementia SKIN: L calf interior aspect aspect redness, without calor or tenderness to touch ED Treatment Course - LABORATORY CBC & Chemistry Diagram: 01/03/19 20:10 01/03/19 20:10 Medical Decision Making - Medical Decision Making 01/03/19 19:42 88 year old woman from [facility] with a PMHx of: CVA (L-sided residual), Parkinson's, Dementia, CAD s/p stents x2 (), Angina, HTN, DM, CKD, Asthma who presents with bilateral lower leg pain for 3 days was controlled w/ Tramadol 50 Q8H, today the patient was complaining of pain and her roommate called 911 to go to the ED since she was complaining of pain. ED Course: consider cellulitis vs uti vs pna / sepsis r/o acs likely pain symptoms 2/2 ongoing medical conditions Patient tachycardic and with low grade fever, most likely infectious 01/03/19 19:46 EKG: normal sinus rhythm w/1st degree AV block HR 98, no interval abnormalities , narrow QRS, ST and T wave segments and morphology normal. pending labs 01/03/19 20:21 CXR: no changes from prior cxr, appropriate vascular markings, no blunting of costophrenic angle, no cardiomegaly, as read by radiology 01/03/19 21:50 pre-renal NAOMY, slighlty elevated AST Abd US to r/o cholelithiasis repeat vitals 150s/110s 01/03/19 22:32 Abd US: no evidence of cholelithiasis 01/04/19 00:16 Patient signed out to resident Dr. Ortega. *DC/Admit/Observation/Transfer Diagnosis at time of Disposition: Leg pain, bilateral - Referrals - Patient Instructions - Post Discharge Activity
[2019-01-03 18:31] VITALS: BMI 31.1
[2019-01-03] MEDS ORDERED: SODIUM CHLORIDE 1,000 ML IV SCH (18:45)
[2019-01-03] MEDS ORDERED: ACETAMINOPHEN 1000 MG/100 ML VIAL (NON FORMULARY) IVPB ONE (19:27)
--- NOTE | 2019-01-03 19:30 | PDOC ---
Attending Attestation - HPI HPI: 01/03/19 19:39 The patient is a 88 year old woman from [facility] with a PMHx of: CVA (L- sided residual), Parkinson's, Dementia, CAD s/p stents x2 (), Angina, HTN , DM, CKD, Asthma who presents via ems from [facility] for evaluation of lower extremity pain for 3 days despite tramadol. As per care home, the patients room mate called ems because the patient had been complaining about pain. The patient is a poor historian. Allergies: NKDA - Physicial Exam PE: 01/03/19 20:50 ROS: A complete review of 10 out of 10 review of systems is taken and is negative apart from what is previously mentioned below and in the HPI. Vitals: Triage vital signs reviewed General Appearance: No acute distress, well nourished, well developed Head: Atraumatic Eyes: Pupils equal reactive round, extraocular movement intact Neck: Supple; No nuchal rigidity Chest Wall: Nontender Cardiac: Regular rate and rhythm, no murmurs, no rubs, no gallops Lungs: Clear to auscultation bilateral, good air movement bilaterally Abdomen: Soft, nondistended, normal bowel sounds, nontender to palpation Extremities: (+) LLE redness to medial santos with questionable tenderness. NO increased warmth. Full range of motion to all extremities, no cyanosis, clubbing , or edema Skin: Warm and dry, no rashes or lesions, no rash, no petechiae Neuro: AOX1; Cranial Nerves 2-12 grossly intact, Strength intact to all extremities, Sensation intact to all extremities, <Rafia Terrazas - Last Filed: 01/03/19 20:50> - Resident Resident Name: Gillian Diego - ED Attending Attestation I have performed the following: I have examined & evaluated the patient, The case was reviewed & discussed with the resident, I agree w/resident's findings & plan, Exceptions are as noted - Medical Decision Making 01/04/19 01:26 Patient complaining of pain to remain history of Parkinson's dementia sent to ED for evaluation. Slight redness noted to lower extremity but no evidence of infection no warmth no evidence of fracture on x-ray Laboratory analysis notable for slightly elevated alkaline phosphatase ultrasound performed with no evidence of gallstones or obstruction Urinalysis grossly positive patient given 1 g ceftriaxone the emergency department and written for 7 day prescription of Keflex Patient is tolerating by mouth can take by mouth antibiotics back at her care home Case discussed with care home Findings, need for follow-up and strict return instructions discussed with care home caretakers. <Omar Beltre - Last Filed: 01/04/19 01:26> Attestations - Attestations 01/03/19 19:40 Documentation prepared by Rafia Terrazas, acting as medical imaging technician for Omar Beltre MD <Rafia Terrazas - Last Filed: 01/03/19 20:50>
[2019-01-03 20:29] LABS: BASO % 0.8 % (0-2.0); EOS % 0.9 % (0-4.5); HEMATOCRIT 34.2 % (32.4-45.2); HEMOGLOBIN 11.2 GM/dL (10.7-15.3); LYMPH % 18.1 % (8-40); MCH 31.2 pg (25.7-33.7); MCHC 32.8 g/dl (32.0-36.0); MEAN PLT VOLUME 8.3 fl (7.5-11.1); MONO % 10.8 % (3.8-10.2); NEUT % 69.4 % (42.8-82.8); PLATELET COUNT 235 K/MM3 (134-434); RBC 3.59 M/mm3 (3.60-5.2); RDW 12.8 % (11.6-15.6); WHITE BLOOD COUNT 9.8 K/mm3 (4.0-10.0)
[2019-01-03] MEDS ORDERED: ACETAMINOPHEN INJECTION 100 ML IVPB ONE (21:00)
[2019-01-03 21:20] LABS: ALBUMIN 3.3 g/dl (3.4-5.0); ALK PHOS 133 U/L (45-117); ANION GAP 8 MMOL/L (8-16); BILIRUBIN,TOTAL 0.3 mg/dL (0.2-1); BLOOD UREA NITROGEN 78 mg/dL (7-18); CALCIUM 8.9 mg/dL (8.5-10.1); CHLORIDE 105 mmol/L (98-107); CO2 29 mmol/L (21-32); GLUCOSE,RANDOM 159 mg/dL (74-106); POTASSIUM 5.2 mmol/L (3.5-5.1); SGOT/AST 65 U/L (15-37); SGPT/ALT 23 U/L (13-61); SODIUM 141 mmol/L (136-145); TOT PROT 7.4 g/dl (6.4-8.2)
[2019-01-04 00:01] VITALS: TEMP 99.4
--- NOTE | 2019-01-04 00:07 | PDOC ---
*Physical Exam - Vital Signs Last Vital Signs Temp Pulse Resp BP Pulse Ox 99.4 F 100 H 20 101/85 100 01/04/19 00:01 01/03/19 18:28 01/03/19 18:28 01/03/19 18:28 01/03/19 20:19 ED Treatment Course - LABORATORY CBC & Chemistry Diagram: 01/03/19 20:10 01/03/19 20:10 - ADDITIONAL ORDERS Additional order review: Laboratory Results 01/03/19 01/03/19 20:10 20:10 Sodium 141 Potassium 5.2 H Chloride 105 Carbon Dioxide 29 Anion Gap 8 BUN 78 H Creatinine 2.0 H Creat Clearance w eGFR 23.57 Random Glucose 159 H Calcium 8.9 Total Bilirubin 0.3 AST 65 H ALT 23 Alkaline Phosphatase 133 H Troponin I Cancelled < 0.02 Total Protein 7.4 Albumin 3.3 L 01/03/19 20:10 RBC 3.59 L MCV 95.0 MCHC 32.8 RDW 12.8 MPV 8.3 Neutrophils % 69.4 Lymphocytes % 18.1 D Monocytes % 10.8 H Eosinophils % 0.9 Basophils % 0.8 - Medications Given in the ED: ED Medications Discontinued Medications Generic Name Dose Route Start Last Admin Trade Name Freq PRN Reason Stop Dose Admin Acetaminophen 1,000 mg 01/03/19 19:27 01/03/19 21:09 Ofirmev Injection - IVPB 01/03/19 19:28 1,000 mg ONCE ONE Administration Medical Decision Making - Medical Decision Making I have assumed care of the patient from Dr. Diego, who has discussed the clinical presentation, work-up, and ED course thus far. I have reviewed the patients medical record and ED course and agree with all aspects of care thus far. Pt pending UA and lower extremity XR results RUQ US Impression: Mildly limited exam due to the patient's inability to fully cooperate as noted above. No evidence of cholelithiasis or acute cholecystitis. The common bile duct diameter is borderline measuring 0.6 - 0.7 cm. UA significant for UTI -Rocephin 1g IV once given in ED -Rx for Keflex reported to pt's NH who will fill Rx Plan for D/C Discharge instructions and return precautions given NH called and updated on pt's status Dispo: home 01/04/19 00:04 *DC/Admit/Observation/Transfer Diagnosis at time of Disposition: Leg pain, bilateral UTI (urinary tract infection) Qualifiers: Urinary tract infection type: site unspecified Hematuria presence: with hematuria Qualified Code(s): N39.0 - Urinary tract infection, site not specified - Discharge Dispostion Disposition: HOME Decision to Admit order: Yes - Prescriptions Prescriptions: Cephalexin Monohydrate [Keflex -] 500 mg PO BID 7 Days #14 capsule - Referrals - Patient Instructions Printed Discharge Instructions: DI for Urinary Tract Infection (UTI) Additional Instructions: You were seen in the Emergency Department and found to have a urinary tract infection. You were given Ceftriaxone in the Emergency Department and should take Keflex 500mg by mouth twice a day for 7 days. Return to the Emergency Department if you develop fevers, chest pain, trouble breathing, blood in your urine, vomiting, diarrhea, or any new/concerning symptoms. - Post Discharge Activity
[2019-01-04 00:09] LABS: EPI CELLS 7.1 /HPF (0-5); URINE APPEARANCE TURBID; URINE BACTERIA 713.6 /hpf (NEGATIVE); URINE BILIRUBIN NEGATIVE (NEGATIVE); URINE CASTS 23 /hpf (0-8); URINE COLOR YELLOW; URINE GLUCOSE (UA) NEGATIVE (NEGATIVE); URINE KETONE NEGATIVE (NEGATIVE); URINE LEUK ESTERASE 3+ (NEGATIVE); URINE NITRITE NEGATIVE (NEGATIVE); URINE PROTEIN TRACE (NEGATIVE); URINE UROBILINOGEN 0.2 mg/dL (0.2-1.0); URINE WBC 3839 /hpf (0-5)
[2019-01-04] MEDS ORDERED: CEFTRIAXONE 1 GM in DEXTROSE 5%-WATER - 100 ML IVPB ONE (00:26)
[2019-01-04] MEDS ORDERED: CEFTRIAXONE 1 GM/50 ML BAG ONE (00:27)
[2019-01-04 00:37] LABS: URINE RBC 4 /hpf (0-4)
[2019-01-04 01:16] VITALS: BP 135/72; PULSE 95
--- NOTE | 2019-01-06 10:55 | EKG ---
Test Reason : Blood Pressure : / mmHG Vent. Rate : 098 BPM Atrial Rate : 098 BPM P-R Int : 226 ms QRS Dur : 080 ms QT Int : 336 ms P-R-T Axes : 087 -18 089 degrees QTc Int : 428 ms SINUS RHYTHM WITH 1ST DEGREE A-V BLOCK ANTEROSEPTAL INFARCT (CITED ON OR BEFORE 02-MAR-2018) T WAVE ABNORMALITY, CONSIDER LATERAL ISCHEMIA ABNORMAL ECG WHEN COMPARED WITH ECG OF 02-OCT-2018 20:52, Confirmed by ERIN CABRERA MD ([id number]) on 01/06/2019 10:55:07 AM Referred By: Confirmed By:ERIN CABRERA MD
== END 2019-01-04 03:22 | disposition home or self-care (01) ==
LOC: JER 17:56
PROC: 3E03329 Introduction of Other Anti-infective into Peripheral Vein, Percutaneous Approach (ICD-10-PCS; principal; 2019-01-03)
PROC: 3E033NZ Introduction of Analgesics, Hypnotics, Sedatives into Peripheral Vein, Percutaneous Approach (ICD-10-PCS; 2019-01-03)
DX: N39.0 Urinary tract infection, site not specified (principal); R31.9 Hematuria, unspecified; M79.605 Pain in left leg; M79.604 Pain in right leg; R94.5 Abnormal results of liver function studies; I25.119 Atherosclerotic heart disease of native coronary artery with unspecified angina pectoris; I13.0 Hypertensive heart and chronic kidney disease with heart failure and stage 1 through stage 4 chronic kidney disease, or unspecified chronic kidney disease; N18.9 Chronic kidney disease, unspecified; I50.9 Heart failure, unspecified; Z95.5 Presence of coronary angioplasty implant and graft; E11.9 Type 2 diabetes mellitus without complications; Z79.84 Long term (current) use of oral hypoglycemic drugs; G20 Parkinson's disease; F02.80 Dementia in other diseases classified elsewhere, unspecified severity, without behavioral disturbance, psychotic disturbance, mood disturbance, and anxiety; G30.8 Other Alzheimer's disease; J45.909 Unspecified asthma, uncomplicated; I69.854 Hemiplegia and hemiparesis following other cerebrovascular disease affecting left non-dominant side
CPT/HCPCS: 36415; 71045-TC-FY; 73590-TC-LT-FY; 76705-TC; 80053; 81003; 84484; 85025; 87040; 87086; 87186; 93005; 93010; 96365; 96375; 99285-25; J0131; J7030

== ENCOUNTER 2019-05-10 21:51 | Inpatient (IN) | payer OTHER | END 2019-05-24 15:22 | disposition short-term general hospital (02) | LOC: JERBED 05-11 01:15 → J5S 05-21 16:52 → JER 21:51 → J4W 05-11 15:03 → JICU 05-20 10:16 → J4W 05-21 21:38 ==